=== PATIENT | female | born 1930 | race Caucasian/White ===

== ENCOUNTER 2016-06-20 15:22 | Inpatient (IN) | payer OTHER, MEDICARE ==
[2016-06-20 15:57] VITALS: BMI 14.3
[2016-06-20] MEDS ORDERED: dilTIAZem HCL 50 MG/10 ML - 10 ML VIAL IVPUSH ONE ×2 (15:57→19:37)
[2016-06-20] MEDS ORDERED: SODIUM CHLORIDE 500 ML IV ONE (15:57)
[2016-06-20] MEDS ORDERED: ASPIRIN 81 MG CHEWABLE TABLETS PO ONE (15:57)
[2016-06-20] MEDS ORDERED: ASPIRIN 81 MG CHEWABLE TABLETS ONE (16:04)
[2016-06-20] MEDS ORDERED: dilTIAZem HCL 125 MG/25 ML - 25 ML VIAL ONE (16:05)
[2016-06-20 16:08] LABS: BASOPHIL 0.7 % (0-2.0); EOSINOPHIL 0.2 % (0-4.5); MCH 30.4 pg (25.7-33.7); MCHC 31.6 g/dl (32.0-36.0); MEAN CELL VOLUME 96.2 fl (80-96); MEAN PLT VOLUME 9.4 fl (7.5-11.1); NEUTROPHILS 58.4 % (42.8-82.8); PLATELET COUNT 98 K/MM3 (134-434); RDW 16.4 % (11.6-15.6); WHITE BLOOD COUNT 2.1 K/mm3 (4.0-10.0)
[2016-06-20] MEDS ORDERED: IPRATROPIUM BR 0.02% 0.5 MG/2.5 ML VIAL.NEB. NEB ONE (16:16)
[2016-06-20] MEDS ORDERED: ALBUTEROL SO4 0.083% IH SOL 2.5 MG/3 ML VIAL.NEB. NEB ONE (16:16)
[2016-06-20] MEDS ORDERED: predniSONE 20 MG TABLET (UD) PO ONE (16:16)
--- NOTE | 2016-06-20 16:25 | PDOC ---
History of Present Illness - General History Source: Patient, Snf Records, Old Records Exam Limitations: No Limitations - History of Present Illness Initial Comments: 06/20/16 16:29 The patient is a 85 year old female brought via EMS from [facility], with a significant past medical history of Afib, CHF, Vertigo, CVA (2011), tinnitus ( left ear dx February 2016), Rheumatoid arthritis, COPD, anxiety and Pulmonary hypertension, who presents to the emergency department with chest pain, palpitations, cough and shortness of breath that began yesterday. She describes her chest pain as a pressure, ranging from mild to moderate, with radiation to the back. She denies any modifying factors. She states that her cough is productive of a "normal" sputum. She notes that she has been compliant with all her medication. The patient was admitted to [facility] after a vertigo episode and has been there ever since. The patient denies headache and dizziness. Denies fever, chills, nausea, vomit, diarrhea and constipation. Denies dysuria, frequency, urgency and hematuria. Allergies: Penicillin, aminophylline Past surgical history: Colon Surgery, left hand carpal tunnel , right eye surgery Social history: No alcohol, tobacco or drug use reported PMD - Dr. Alex Salinas Market Developer - Dr. Omar Kapoor <Colin Shore - Last Filed: 06/20/16 18:52> - General History Source: Patient, Old Records Exam Limitations: No Limitations <Horace Almonte - Last Filed: 06/20/16 20:03> - General Chief Complaint: Chest Pain Stated Complaint: DIFFICULTY BREATHING Time Seen by Provider: 06/20/16 16:06 Past History <Colin Shore - Last Filed: 06/20/16 18:52> - Past Medical History Asthma: Yes Cardiac Disorders: Yes (a-fib) CHF: Yes Diabetes: Yes (BORDER LINE) HTN: Yes Psychiatric Problems: Yes (ANXIETY) Suicide Attempt (Hx): No Thyroid Disease: Yes (hypo) - Surgical History Abdominal Surgery: No Cardiac Surgery: (YES,RT EYE) GI Surgery: Yes (COLON) Neurologic Surgery: Yes (LT CARPEL TUNNEL.) - Psycho/Social/Smoking Cessation Hx Anxiety: No Suicidal Ideation: No Smoking Status: No Smoking History: Never smoked Have you smoked in the past 12 months: No Number of Cigarettes Smoked Daily: 0 Hx Alcohol Use: No Drug/Substance Use Hx: No Substance Use Type: None Hx Substance Use Treatment: No <Horace Almonte - Last Filed: 06/20/16 20:03> - Past Medical History Allergies/Adverse Reactions: Allergies Allergy/AdvReac Type Severity Reaction Status Date / Time Penicillins Allergy Severe Difficulty Verified 06/20/16 15:57 Breathing aminophylline Allergy Mild Rash Verified 06/20/16 15:57 [From Aminophyllin] shellfsh Allergy Uncoded 06/20/16 15:57 Home Medications: Ambulatory Orders Rivaroxaban [Xarelto -] 20 mg PO DAILY 12/14/14 Levothyroxine [Synthroid -] 50 mcg PO DAILY 02/13/16 Albuterol 2.5/Ipratropium 0.5 [Duoneb -] 1 neb IH QID #120 vial.neb. MDD 4 04/10 Acetaminophen [Tylenol .Regular Strength -] 650 mg PO Q4H PRN #0 tablet Clonazepam [Klonopin -] 0.5 mg PO Q12H PRN 05/26/16 Diltiazem Cd [Cardizem Cd -] 60 mg PO DAILY #0 05/29/16 Lisinopril [Prinivil] 5 mg PO DAILY@0800 #30 tablet 05/29/16 Probenecid 500 mg PO DAILY #0 05/29/16 Meclizine HCl [Antivert -] 12.5 mg PO TID PRN 06/20/16 Saliva Substitute Combo No.9 [Biotene] 10 ml PO BID 06/20/16 Review of Systems - Review of Systems Able to Perform ROS?: Yes Comments:: 06/20/16 16:29 GENERAL/CONSTITUTIONAL: No fever or chills. No weakness. HEAD, EYES, EARS, NOSE AND THROAT: No change in vision. No ear pain or discharge. No sore throat. CARDIOVASCULAR: +Chest pain, palpitations and shortness of breath. RESPIRATORY: +Cough. No wheezing, or hemoptysis. GASTROINTESTINAL: No nausea, vomiting, diarrhea or constipation. GENITOURINARY: No dysuria, frequency, or change in urination. MUSCULOSKELETAL: No joint or muscle swelling or pain. No neck or back pain. SKIN: No rash NEUROLOGIC: No headache, vertigo, loss of consciousness, or change in strength/ sensation. ENDOCRINE: No increased thirst. No abnormal weight change HEMATOLOGIC/LYMPHATIC: No anemia, easy bleeding, or history of blood clots. ALLERGIC/IMMUNOLOGIC: No hives or skin allergy. <Colin Shore - Last Filed: 06/20/16 18:52> *Physical Exam - Vital Signs Last Vital Signs Temp Pulse Resp BP Pulse Ox 99.3 F 111 H 20 127/53 100 06/20/16 15:25 06/20/16 15:25 06/20/16 15:25 06/20/16 15:25 06/20/16 16:00 - Physical Exam Comments: 06/20/16 16:29 GENERAL: Awake, alert, and fully oriented, in no acute distress HEAD: No signs of trauma, normocephalic, atraumatic EYES: PERRLA, EOMI, sclera anicteric, conjunctiva clear ENT: Auricles normal inspection, hearing grossly normal, nares patent, oropharynx clear without exudates. Moist mucosa NECK: Normal ROM, supple, no lymphadenopathy, JVD, or masses LUNGS: +Bilateral wheezing. Speaks full sentences. HEART: +Irregularly irregular. Normal S1 and S2, no murmurs, rubs or gallops, peripheral pulses normal and equal bilaterally. ABDOMEN: Soft, nontender, normoactive bowel sounds. No guarding, no rebound. No masses EXTREMITIES: Normal inspection, Normal range of motion, no edema. No clubbing or cyanosis. NEUROLOGICAL: Cranial nerves II through XII grossly intact. Normal speech, no focal sensorimotor deficits SKIN: Warm, Dry, normal turgor, no rashes or lesions noted. <Colin Shore Olivia - Last Filed: 06/20/16 18:52> - Vital Signs Last Vital Signs Temp Pulse Resp BP Pulse Ox 99.3 F 111 H 20 127/53 100 06/20/16 15:25 06/20/16 15:25 06/20/16 15:25 06/20/16 15:25 06/20/16 15:25 <Horace Almonte - Last Filed: 06/20/16 20:03> Heart Score/ECG Review - History History: Moderately suspicious - Electrocardiogram EKG: Non specific repolarization disturbance - Age Age: >/= 65 - Risk Factors Based on the list above the patient has:: >/=3 risk factors or Hx atherosclerotic disease - Troponin Troponin: </= normal limit - Score Heart Score - Total: 6 #1 ECG reviewed & interpreted by me at: 16:00 06/20/16 16:26 afib RVR 119, left axis deviation, submm STD V6, QTC 483 msec. no JAQUELINE. <Horace Almonte - Last Filed: 06/20/16 20:03> ED Treatment Course - LABORATORY CBC & Chemistry Diagram: 06/20/16 16:00 06/20/16 16:00 - ADDITIONAL ORDERS Additional order review: 06/20/16 16:00 RBC 3.61 MCV 96.2 H MCHC 31.6 L RDW 16.4 H D MPV 9.4 D Neutrophils % 58.4 Lymphocytes % 22.2 Monocytes % 18.5 H D Eosinophils % 0.2 D Basophils % 0.7 - RADIOLOGY Radiograph Interpretation: 06/20/16 17:23 Chest X-Ray Reviewed by: Dr. Dinorah Montes Impression: Since 05/26/2016, there remains mild cardiomegaly with unfolding of the aortic arch. There is interval better aeration of both lower lobes with residual atelectatic changes versus infiltrates in the right lung base and small bilateral pleural effusion. Head CT Reviewed by: Dr. Dinorah Montes Impression: No significant interval change or acute intracranial pathology is identified. - Medications Given in the ED: ED Medications Discontinued Medications Generic Name Dose Route Start Last Admin Trade Name Freq PRN Reason Stop Dose Admin Aspirin 162 mg 06/20/16 15:57 06/20/16 16:14 Asa - PO 06/20/16 15:58 Not Given ONCE ONE Diltiazem HCl 10 mg 06/20/16 15:57 06/20/16 16:14 Cardizem Injection - IVPUSH 06/20/16 15:58 10 mg ONCE ONE Administration <Colin Shore - Last Filed: 06/20/16 18:52> - LABORATORY CBC & Chemistry Diagram: 06/20/16 16:00 06/20/16 16:00 - ADDITIONAL ORDERS Additional order review: 06/20/16 16:00 RBC 3.61 MCV 96.2 H MCHC 31.6 L RDW 16.4 H D MPV 9.4 D Neutrophils % 58.4 Lymphocytes % 22.2 Monocytes % 18.5 H D Eosinophils % 0.2 D Basophils % 0.7 - Medications Given in the ED: ED Medications Discontinued Medications Generic Name Dose Route Start Last Admin Trade Name Rachel PRN Reason Stop Dose Admin Aspirin 162 mg 06/20/16 15:57 06/20/16 16:14 Asa - PO 06/20/16 15:58 Not Given ONCE ONE Diltiazem HCl 10 mg 06/20/16 15:57 06/20/16 16:14 Cardizem Injection - IVPUSH 06/20/16 15:58 10 mg ONCE ONE Administration <Horace Almonte - Last Filed: 06/20/16 20:03> Medical Decision Making - Medical Decision Making 06/20/16 17:33 Dr. Lelo Waite was called regarding the patient at 5:33pm. Dr. Silva covering. Dr. Silva was consulted regarding the patient at 5:53pm [phone] <Colin Shore - Last Filed: 06/20/16 18:52> - Medical Decision Making 06/20/16 16:20 A portion of this scribe was written by my scribe, under my supervision. Vital Signs Temp Pulse Resp BP Pulse Ox 99.3 F 111 H 20 127/53 100 06/20/16 15:25 06/20/16 15:25 06/20/16 15:25 06/20/16 15:25 06/20/16 15:25 85 yo F c/ hx of pulm HTN, CHF, afib on xarelto, vertigo, CVA p/w afib RVR. The patient reports mildly clearish productive sputum and wheezing. She was taking an albuterol treatment at [facility] when she suddenly felt palpitations. She was noted to have chest tightness with SOB. HR was noted to be 120s in afib RVR and the patient came to the ED. Denies fevers. The pt was given IV cardizem for afib RVR which is likely induced by the albuterol. However, the patient is wheezing and will require nebulizers and steroids. Will obtain a chest xray. Though, probably less likely, will TYRON. 06/20/16 18:54 CBC, BMP 06/20/16 16:00 06/20/16 16:00 CMP Sodium 136 mmol/L (136-145) 06/20/16 16:00 Potassium 3.3 mmol/L (3.5-5.1) L 06/20/16 16:00 Chloride 97 mmol/L (98-107) L 06/20/16 16:00 Carbon Dioxide 30 mmol/L (21-32) 06/20/16 16:00 Anion Gap 9 (8-16) 06/20/16 16:00 BUN 19 mg/dL (7-18) H D 06/20/16 16:00 Creatinine 0.8 mg/dL (0.55-1.02) 06/20/16 16:00 Creat Clearance w eGFR > 60 (>60) 06/20/16 16:00 Random Glucose 196 mg/dL (74-106) H D 06/20/16 16:00 Calcium 7.9 mg/dL (8.5-10.1) L 06/20/16 16:00 Magnesium 1.8 mg/dL (1.8-2.4) 06/20/16 16:00 Total Bilirubin 0.5 mg/dL (0.2-1.0) D 06/20/16 16:00 AST 26 U/L (15-37) D 06/20/16 16:00 ALT 13 U/L (12-78) 06/20/16 16:00 Alkaline Phosphatase 59 U/L (45-117) 06/20/16 16:00 Creatine Kinase 39 IU/L (26-192) 06/20/16 16:00 Troponin I 0.05 ng/ml (0.00-0.05) 06/20/16 16:00 B-Natriuretic Peptide 91106.38 pg/ml (5-450) H 06/20/16 16:00 Total Protein 5.8 g/dl (6.4-8.2) L 06/20/16 16:00 Albumin 3.1 g/dl (3.4-5.0) L 06/20/16 16:00 UA pending. Chest xray demonstrates small b/l pleural effusions and right sided infiltrate. HCAP coverage ordered (vanc, aztreonam, azithromycin). Given elevated BNP and pleural effusions, 40 mg IV lasix ordered. Pt is also influenza positive. Tamiflu ordered given symptoms started yesterday. Pt had an episode where she was being changed where she was yelling from being changed, and she subsequently ?syncopized. Approximately several minutes later, the patient returned to baseline, where she reported feeling fine and didn't remember the event. It may have been vasovagal. Head CT was ordered and was negative. Labs also noted low plts and WBC. Dr. Silva was informed, and he accepted the patient for telemetry admission. Case discussed in detail with admitting physician including history, physical exam and ancillary studies. Admitting physician has assumed care for the patient, will follow all pending diagnostics and will complete the evaluation and treatment. 06/20/16 20:03 Pt absolutely refuses aspirin. States that he is to never take aspirin according to her hematology technologist. <Horace Almonte - Last Filed: 06/20/16 20:03> *DC/Admit/Observation/Transfer - Attestations Scribe Attestion: 06/20/16 16:28 Documentation prepared by Colin Shore, acting as clinical specialist medical device for Horace Almonte MD <Colin Shore - Last Filed: 06/20/16 18:52> - Discharge Dispostion Admit: Yes <Horace Almonte - Last Filed: 06/20/16 20:03> Diagnosis at time of Disposition: COPD exacerbation, Influenza Congestive heart failure Qualifiers: Congestive heart failure type: combined Congestive heart failure chronicity: acute Qualified Code(s): I50.41 - Acute combined systolic (congestive) and diastolic (congestive) heart failure - Referrals
[2016-06-20 16:30] LABS: INR 2.59 (0.82-1.09)
[2016-06-20 16:41] LABS: ALBUMIN 3.1 g/dl (3.4-5.0); ANION GAP 9 (8-16); BILIRUBIN,TOTAL 0.5 mg/dL (0.2-1.0); CALCIUM 7.9 mg/dL (8.5-10.1); CO2 30 mmol/L (21-32); CREATININE 0.8 mg/dL (0.55-1.02); GLUCOSE,RANDOM 196 mg/dL (74-106); MAGNESIUM 1.8 mg/dL (1.8-2.4); SGOT/AST 26 U/L (15-37); SGPT/ALT 13 U/L (12-78); TOT PROT 5.8 g/dl (6.4-8.2)
[2016-06-20 16:44] LABS: ALK PHOS 59 U/L (45-117); TROPONIN I 0.05 ng/ml (0.00-0.05)
[2016-06-20] MEDS ORDERED: predniSONE 20 MG TABLET (UD) ONE ×2 (17:13)
[2016-06-20] MEDS ORDERED: ALBUTEROL SO4 2.5/IPRATROPIUM 0.5 INH SOL 3 ML VIAL.NEB. NEB ONE (17:13)
[2016-06-20] MEDS ORDERED: POTASSIUM CHLORIDE TABS 20 MEQ TABLET.ER (FP) PO ONE ×2 (17:29→17:40)
[2016-06-20] MEDS ORDERED: AZTREONAM 2 GM in DEXTROSE 5%-WATER - 50 ML IVPB ONE (17:31)
[2016-06-20] MEDS ORDERED: VANCOMYCIN 1,000 MG in DEXTROSE 5%-WATER - 250 ML IVPB ONE (17:31)
[2016-06-20] MEDS ORDERED: AZITHROMYCIN IVPB 500 MG in DEXTROSE 5%-WATER - 250 ML IVPB ONE (17:32)
[2016-06-20] MEDS ORDERED: VANCOMYCIN 1 GRAM (PRE-DOCKED) 250 ML IVPB ONE ×2 (17:40→17:41)
[2016-06-20] MEDS ORDERED: AZITHROMYCIN IVPB 250 ML IVPB ONE (17:40)
[2016-06-20] MEDS ORDERED: FUROSEMIDE 40 MG/4 ML INJECTABLE VIAL IVPB ONE (18:08)
[2016-06-20] MEDS ORDERED: HEMOQUE TEST 1 EACH EACH ONE ×2 (18:09→19:10)
[2016-06-20] MEDS ORDERED: FUROSEMIDE 40 MG/4 ML INJECTABLE VIAL ONE (18:38)
[2016-06-20] MEDS ORDERED: OSELTAMIVIR PHOSPHATE 75 MG CAPSULE PO ONE ×2 (18:56→22:45)
[2016-06-20] MEDS ORDERED: OSELTAMIVIR PHOSPHATE 75 MG CAPSULE ONE (19:31)
[2016-06-20 20:48] LABS: PH,URINE 5.5 (5.0-8.0); URINE APPEARANCE CLEAR; URINE BILIRUBIN NEGATIVE (NEGATIVE); URINE COLOR LT. YELLOW; URINE GLUCOSE (UA) NEGATIVE (NEGATIVE); URINE KETONE NEGATIVE (NEGATIVE); URINE LEUK ESTERASE NEGATIVE (NEGATIVE); URINE NITRITE NEGATIVE (NEGATIVE); URINE UROBILINOGEN 0.2 E.U/dl E.U./dl (0.2-1.0)
[2016-06-20 20:51] LABS: URINE BLOOD 3+ (NEGATIVE); URINE PROTEIN 1+ (NEGATIVE)
[2016-06-20 21:02] LABS: URINE BACTERIA RARE /hpf (NONE SEEN); URINE HYALINE CAST 5 /lpf; URINE MUCUS RARE; URINE RBC 223 /hpf (0-3); URINE WBC 8 /hpf (3-5)
[2016-06-20] MEDS ORDERED: MECLIZINE HCL 12.5 MG TABLET PO PRN (21:44)
[2016-06-20] MEDS ORDERED: ACETAMINOPHEN 325 MG TABLET (FP) PO PRN (21:44)
[2016-06-20] MEDS ORDERED: clonazePAM 0.5 MG TABLET PO PRN (21:44)
[2016-06-20] MEDS ORDERED: OSELTAMIVIR PHOSPHATE 75 MG CAPSULE PO SCH (22:00)
[2016-06-20] MEDS: OSELTAMIVIR PHOSPHATE 30 MG CAPSULE PO SCH (23:42)
[2016-06-21] MEDS: ALBUTEROL SO4 2.5/IPRATROPIUM 0.5 INH SOL 3 ML VIAL.NEB. NEB SCH ×5 (00:03→23:11)
[2016-06-21] MEDS: methylPREDNISolone NA SUCC 40 MG/1 ML VIAL IVPB SCH ×3 (03:26→17:06)
[2016-06-21] MEDS: LEVOTHYROXINE NA 50 MCG TABLET (FP) PO SCH (06:22)
[2016-06-21 08:17] LABS: MCH 31.1 pg (25.7-33.7); MCHC 32.9 g/dl (32.0-36.0); MEAN CELL VOLUME 94.7 fl (80-96); MEAN PLT VOLUME 9.2 fl (7.5-11.1); PLATELET COUNT 82 K/MM3 (134-434)
[2016-06-21 08:35] LABS: ALBUMIN 3.1 g/dl (3.4-5.0); ALK PHOS 56 U/L (45-117); ANION GAP 9 (8-16); BILIRUBIN,TOTAL 0.6 mg/dL (0.2-1.0); CALCIUM 8.5 mg/dL (8.5-10.1); CO2 30 mmol/L (21-32); CREATININE 0.7 mg/dL (0.55-1.02); GLUCOSE,RANDOM 143 mg/dL (74-106); MAGNESIUM 1.9 mg/dL (1.8-2.4); SGOT/AST 30 U/L (15-37); SGPT/ALT 16 U/L (12-78); TOT PROT 6.2 g/dl (6.4-8.2)
[2016-06-21] MEDS ORDERED: PT OWN MED DRAWER 7, Y5N ONE ×2 (09:25→21:39)
[2016-06-21] MEDS: LISINOPRIL 5 MG TABLET (FP) PO SCH (09:35)
[2016-06-21] MEDS: RIVAROXABAN 20 MG TABLET PO SCH (09:35)
[2016-06-21] MEDS: OSELTAMIVIR PHOSPHATE 30 MG CAPSULE PO SCH ×2 (09:36→21:54)
[2016-06-21] MEDS: PROBENECID 500 MG TABLET PO SCH (09:36)
[2016-06-21] MEDS ORDERED: PANTOPRAZOLE 20 MG TABLET (FP) PO SCH (10:00)
[2016-06-21] MEDS ORDERED: dilTIAZem HCL 60 MG TABLET (FP) PO SCH (10:00)
--- NOTE | 2016-06-21 10:13 | HP ---
Admitting History and Physical - Primary Care Physician PCP: Alex Salinas - Admission Chief Complaint: sob History of Present Illness: ER HISTORY ' - History of Present Illness Initial Comments: 06/20/16 16:29 The patient is a 85 year old female brought via EMS from [facility], with a significant past medical history of Afib, CHF, Vertigo, CVA (2011), tinnitus ( left ear dx February 2016), Rheumatoid arthritis, COPD, anxiety and Pulmonary hypertension, who presents to the emergency department with chest pain, palpitations, cough and shortness of breath that began yesterday. She describes her chest pain as a pressure, ranging from mild to moderate, with radiation to the back. She denies any modifying factors. She states that her cough is productive of a "normal" sputum. She notes that she has been compliant with all her medication. The patient was admitted to [facility] alf after a vertigo episode and has been there ever since. The patient denies headache and dizziness. Denies fever, chills, nausea, vomit, diarrhea and constipation. Denies dysuria, frequency, urgency and hematuria. 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 Omar Kapoor Pt known by me from previous admissions- Examined in Telemetry [place] SOB yesterday and has some mild chest pain - she points to left nipple Coughing- productive of white sputum No diarrhea, feels chills No headaches No abd pain She had an episode of syncope in ER yesterday when she was yelling when being changed Had rapid Afib in ER and received Cardizem IV History Source: Medical Record, Transfer Record Limitations to Obtaining History: Poor Historian - Past Medical History RESOLUTE PROFESSIONAL: Yes: CVA Cardiovascular: Yes: AFIB, CAD, CHF, HTN Pulmonary: Yes: Asthma, Pneumonia ...: No Psych: Yes: Anxiety Rheumatology: Yes: Rheumatoid Arthritis - Past Surgical History Past Surgical History: Yes: Laminectomy - Smoking History Smoking history: Never smoked Have you smoked in the past 12 months: No Aproximately how many cigarettes per day: 0 - Alcohol/Substance Use Hx Alcohol Use: No - Social History ADL: Independent History of Recent Travel: No Home Medications - Allergies Allergies/Adverse Reactions: Allergies Allergy/AdvReac Type Severity Reaction Status Date / Time Penicillins Allergy Severe Difficulty Verified 06/20/16 15:57 Breathing aminophylline Allergy Mild Rash Verified 06/20/16 15:57 [From Aminophyllin] shellfsh Allergy Uncoded 06/20/16 15:57 - Home Medications Home Medications: Ambulatory Orders Rivaroxaban [Xarelto -] 20 mg PO DAILY 12/14/14 Levothyroxine [Synthroid -] 50 mcg PO DAILY 02/13/16 Albuterol 2.5/Ipratropium 0.5 [Duoneb -] 1 neb IH QID #120 vial.neb. MDD 4 04/10 Acetaminophen [Tylenol .Regular Strength -] 650 mg PO Q4H PRN #0 tablet Clonazepam [Klonopin -] 0.5 mg PO Q12H PRN 05/26/16 Diltiazem Cd [Cardizem Cd -] 60 mg PO DAILY #0 05/29/16 Lisinopril [Prinivil] 5 mg PO DAILY@0800 #30 tablet 05/29/16 Probenecid 500 mg PO DAILY #0 05/29/16 Meclizine HCl [Antivert -] 12.5 mg PO TID PRN 06/20/16 Saliva Substitute Combo No.9 [Biotene] 10 ml PO BID 06/20/16 Review of Systems - Review of Systems Constitutional: reports: Chills, Fever. denies: Loss of Appetite, Weakness Cardiovascular: reports: Chest Pain. denies: Palpitations Respiratory: reports: Cough, SOB Physical Examination Vital Signs: Vital Signs Temperature 97.9 F 06/21/16 08:14 Pulse Rate 120 H 06/21/16 08:14 Respiratory Rate 20 06/21/16 08:14 Blood Pressure 114/66 06/21/16 08:14 O2 Sat by Pulse Oximetry (%) 99 06/21/16 08:00 Constitutional: Yes: No Distress, Calm Cardiovascular: Yes: Pulse Irregular, Murmur. No: JVD Respiratory: Yes: Diminished, Rales Gastrointestinal: Yes: Normal Bowel Sounds, Soft. No: Abdomen, Obese, Distention, Tenderness Edema: No Psychiatric: Yes: Alert, Oriented Labs: CBC, BMP 06/21/16 05:35 06/21/16 05:35 Imaging - Results Chest X-ray: Image Reviewed Cat Scan: Report Reviewed EKG: Image Reviewed (Afib) Problem List - Problems (1) COPD exacerbation Code(s): J44.1 - CHRONIC OBSTRUCTIVE PULMONARY DISEASE W (ACUTE) EXACERBATION (2) Congestive heart failure Code(s): I50.9 - HEART FAILURE, UNSPECIFIED Qualifiers: Congestive heart failure type: combined Congestive heart failure chronicity: acute Qualified Code(s): I50.41 - Acute combined systolic ( congestive) and diastolic (congestive) heart failure (3) Influenza Code(s): J11.1 - FLU DUE TO UNIDENTIFIED INFLUENZA VIRUS W OTH RESP MANIFEST (4) Atrial fibrillation Code(s): I48.91 - UNSPECIFIED ATRIAL FIBRILLATION (5) Pleural effusion Code(s): J90 - PLEURAL EFFUSION, NOT ELSEWHERE CLASSIFIED (6) Chest pain Code(s): R07.9 - CHEST PAIN, UNSPECIFIED Assessment/Plan PLAN Droplet isolation for Influenza Decrease Solumedrol IV Lasix -- check renal function repeat CXR tomorrow Cardiology eval Albuterol as needed continue with meds
--- NOTE | 2016-06-21 11:17 | EKG ---
Test Reason : Blood Pressure : / mmHG Vent. Rate : 119 BPM Atrial Rate : 072 BPM P-R Int : 000 ms QRS Dur : 082 ms QT Int : 344 ms P-R-T Axes : 000 -46 198 degrees QTc Int : 483 ms ATRIAL FIBRILLATION WITH RAPID VENTRICULAR RESPONSE LEFT AXIS DEVIATION ABNORMAL ECG WHEN COMPARED WITH ECG OF 26-MAY-2016 14:46, VENT. RATE HAS INCREASED BY [address] NOW DEPRESSED IN LATERAL LEADS Confirmed by GABRIEL BYERS, FLORESITA ([id number]) on 06/21/2016 11:16:46 AM Referred By: Confirmed By:FLORESITA RIOS MD
--- NOTE | 2016-06-21 11:41 | CONSULT ---
Consult Consult Specialty:: cardiology Reason for Consultation:: shortness of breath; tachycardia; syncope - History of Present Illness History of Present Illness: The patient is a 85 year old white female (satish Vela), brought via EMS from [facility], with a significant past medical history of Afib, diastolic CHF, Vertigo, CVA (2011), tinnitus (left ear dx February 2016), Rheumatoid arthritis, COPD, chronic abdominal discomfort with loss of appetite and weight loss, anxiety, gout, who presents to the emergency department with chest pain, palpitations, cough and shortness of breath that began yesterday. She describes her chest pain as a pressure, ranging from mild to moderate, with radiation to the back. She denies any modifying factors. She states that her cough is productive of a "normal" sputum. She notes that she has been compliant with all her medication. The patient was admitted to [facility] months ago after a vertiginous episode and has been there ever since. She reports having fever and chills. - History Source History Provided By: Patient, Medical Record Limitations to Obtaining History: No Limitations - Past Medical History DIRECTOR OF HOUSING: Yes: CVA Cardio/Vascular: Yes: AFIB, CAD, CHF, HTN Pulmonary: Yes: Asthma, Pneumonia Gastrointestinal: Yes: Diverticulosis, Gastritis, GERD Reproductive: Yes: Postmenopausal ...: No Heme/Onc: Yes: Other (leukopenia) Psych: Yes: Anxiety Rheumatology: Yes: Rheumatoid Arthritis - Past Surgical History Past Surgical History: Yes: Laminectomy - Alcohol/Substance Use Hx Alcohol Use: No - Smoking History Smoking history: Never smoked Have you smoked in the past 12 months: No Aproximately how many cigarettes per day: 0 - Social History ADL: Independent History of Recent Travel: No Home Medications - Allergies Allergies/Adverse Reactions: Allergies Allergy/AdvReac Type Severity Reaction Status Date / Time Penicillins Allergy Severe Difficulty Verified 06/20/16 15:57 Breathing aminophylline Allergy Mild Rash Verified 06/20/16 15:57 [From Aminophyllin] shellfsh Allergy Uncoded 06/20/16 15:57 - Home Medications Home Medications: Ambulatory Orders Rivaroxaban [Xarelto -] 20 mg PO DAILY 12/14/14 Levothyroxine [Synthroid -] 50 mcg PO DAILY 02/13/16 Albuterol 2.5/Ipratropium 0.5 [Duoneb -] 1 neb IH QID #120 vial.neb. MDD 4 04/10 Acetaminophen [Tylenol .Regular Strength -] 650 mg PO Q4H PRN #0 tablet Clonazepam [Klonopin -] 0.5 mg PO Q12H PRN 05/26/16 Diltiazem Cd [Cardizem Cd -] 60 mg PO DAILY #0 05/29/16 Lisinopril [Prinivil] 5 mg PO DAILY@0800 #30 tablet 05/29/16 Probenecid 500 mg PO DAILY #0 05/29/16 Meclizine HCl [Antivert -] 12.5 mg PO TID PRN 06/20/16 Saliva Substitute Combo No.9 [Biotene] 10 ml PO BID 06/20/16 Family Disease History - Family Disease History Family History: Denies Review of Systems - Review of Systems Constitutional: reports: Fever, Unintentional Wgt. Loss, Weakness Eyes: reports: No Symptoms HENT: reports: No Symptoms Neck: reports: No Symptoms Cardiovascular: reports: Shortness of Breath Respiratory: reports: Cough, SOB Musculoskeletal: reports: Joint Pain, Muscle Weakness Neurological: reports: Weakness Endocrine: reports: Unexplained Weight Loss Psychiatric: reports: Anxiety - Risk Factors Known Risk Factors: Yes: Age, Hypertension, Other (atrial fibrillation) Vital Signs: Vital Signs Temperature 97.9 F 06/21/16 08:14 Pulse Rate 120 H 06/21/16 08:14 Respiratory Rate 20 06/21/16 08:14 Blood Pressure 114/66 06/21/16 08:14 O2 Sat by Pulse Oximetry (%) 99 06/21/16 08:00 Abnormal Lab Results 06/21/16 06/21/16 05:35 05:35 WBC 1.0 L D RBC 3.56 L RDW 16.0 H Plt Count 82 L Monocytes % 2.0 L D Sodium 134 L Chloride 95 L Random Glucose 143 H D Total Protein 6.2 L Albumin 3.1 L Constitutional: Yes: Anxious, Thin Eyes: Yes: WNL HENT: Yes: WNL Neck: Yes: WNL Respiratory: Yes: Diminished, Rales Gastrointestinal: Yes: Soft Renal/: No: Anuria Cardiovascular: Yes: Pulse Irregular JVD: Yes Carotid Bruit: No PMI: Non-Displaced Heart Sounds: Yes: S1 (varies in intensity), S2 Murmur: Yes: Systolic Murmur, Grade 2 Musculoskeletal: Yes: Muscle Weakness Extremities: Yes: Cool Edema: No Peripheral Pulses WNL: No Peripheral Pulses: 1+ Left Doralis Pedis, 1+ Right Dorsalis Pedis Neurological: Yes: Alert, Oriented, Weakness Psychiatric: Yes: Alert, Oriented - Other Data Labs, Other Data: CBC, BMP 06/21/16 05:35 06/21/16 05:35 INR, PTT INR 2.59 (0.82-1.09) H 06/20/16 16:00 Abnormal Lab Results 06/21/16 06/21/16 05:35 05:35 WBC 1.0 L D RBC 3.56 L RDW 16.0 H Plt Count 82 L Monocytes % 2.0 L D Sodium 134 L Chloride 95 L Random Glucose 143 H D Total Protein 6.2 L Albumin 3.1 L Echo: Image Reviewed (normal LVEF; mildly reduced RVEF; moderate MR.) Ejection Fraction %: LVEF > or = 40 % Imaging - Results Chest X-ray: Image Reviewed (small bilateral pleural effusions;) EKG: Image Reviewed (AF) Problem List - Problems (1) COPD exacerbation Assessment/Plan: on Solumedrol, bronchodilators. Code(s): J44.1 - CHRONIC OBSTRUCTIVE PULMONARY DISEASE W (ACUTE) EXACERBATION (2) Influenza Assessment/Plan: on Tamiflu; f/u with ID. Code(s): J11.1 - FLU DUE TO UNIDENTIFIED INFLUENZA VIRUS W OTH RESP MANIFEST (3) Anxiety Code(s): F41.9 - ANXIETY DISORDER, UNSPECIFIED (4) Atrial fibrillation Assessment/Plan: On diltiazem (restart 120 mg CD/day). On Xarelto. Code(s): I48.91 - UNSPECIFIED ATRIAL FIBRILLATION (5) Diastolic dysfunction with chronic heart failure Code(s): I50.32 - CHRONIC DIASTOLIC (CONGESTIVE) HEART FAILURE (6) Dizziness Assessment/Plan: on Antivert. Code(s): R42 - DIZZINESS AND GIDDINESS (7) Fever Code(s): R50.9 - FEVER, UNSPECIFIED (8) Abdominal discomfort Code(s): R10.9 - UNSPECIFIED ABDOMINAL PAIN (9) Leukopenia Assessment/Plan: Marked leukopenia with thrombocytopenia: ? medications (including agent for gout ; ? due to clonazepam); sepsis with immunosupression; r/o malignancy.. Code(s): D72.819 - DECREASED WHITE BLOOD CELL COUNT, UNSPECIFIED (10) Thrombocytopenia Code(s): D69.6 - THROMBOCYTOPENIA, UNSPECIFIED (11) Hypothyroid Assessment/Plan: On Synthroid. TSH 2.35. Code(s): E03.9 - HYPOTHYROIDISM, UNSPECIFIED
[2016-06-21] MEDS ORDERED: FUROSEMIDE 40 MG/4 ML INJECTABLE VIAL IVPUSH SCH (14:00)
[2016-06-22] MEDS: methylPREDNISolone NA SUCC 40 MG/1 ML VIAL IVPB SCH ×3 (02:30→22:08)
[2016-06-22] MEDS: LEVOTHYROXINE NA 50 MCG TABLET (FP) PO SCH (06:10)
[2016-06-22] MEDS: ALBUTEROL SO4 2.5/IPRATROPIUM 0.5 INH SOL 3 ML VIAL.NEB. NEB SCH ×4 (06:23→23:15)
[2016-06-22 07:03] LABS: MCH 31.2 pg (25.7-33.7); MCHC 32.7 g/dl (32.0-36.0); MEAN CELL VOLUME 95.3 fl (80-96); MEAN PLT VOLUME 9.2 fl (7.5-11.1); NEUTROPHILS 81.7 % (42.8-82.8); PLATELET COUNT 86 K/MM3 (134-434); RDW 16.3 % (11.6-15.6); WHITE BLOOD COUNT 2.9 K/mm3 (4.0-10.0)
[2016-06-22 07:55] LABS: ALBUMIN 3.3 g/dl (3.4-5.0); ALK PHOS 59 U/L (45-117); ANION GAP 9 (8-16); BILIRUBIN,TOTAL 0.6 mg/dL (0.2-1.0); CALCIUM 8.9 mg/dL (8.5-10.1); CO2 31 mmol/L (21-32); CREATININE 0.8 mg/dL (0.55-1.02); GLUCOSE,RANDOM 140 mg/dL (74-106); SGOT/AST 24 U/L (15-37); SGPT/ALT 16 U/L (12-78); TOT PROT 6.6 g/dl (6.4-8.2)
[2016-06-22] MEDS ORDERED: PT OWN MED DRAWER 7, Y5N ONE (08:14)
[2016-06-22] MEDS: LISINOPRIL 5 MG TABLET (FP) PO SCH (08:31)
[2016-06-22] MEDS: RANITIDINE HCL 150 MG TABLET (FP) PO SCH (10:02)
[2016-06-22] MEDS: RIVAROXABAN 20 MG TABLET PO SCH (10:02)
[2016-06-22] MEDS: PROBENECID 500 MG TABLET PO SCH (10:03)
[2016-06-22] MEDS: FUROSEMIDE 40 MG/4 ML INJECTABLE VIAL IVPUSH SCH (10:03)
--- NOTE | 2016-06-22 10:55 | PN ---
Progress Note (short form) - Note Progress Note: SUBJECTIVE: Patient seen and examined. Chart reviewed. Patient comfortable. Cough present. Overall feels better. Afebrile. OBJECTIVE: Vital Signs - 8 hr 06/22/16 06/22/16 06/22/16 06:55 07:40 07:44 Temperature 98.1 F Pulse Rate 97 H 103 H Respiratory 20 20 20 Rate Blood Pressure 123/64 120/69 Intake & Output 06/21/16 06/22/16 06/22/16 23:59 07:59 15:59 Intake Total 300 Output Total 400 Balance -100 Weight 41.095 kg Intake: Oral 300 Output: Urine 400 Pérez 400 Other: Voiding Method Indwelling Catheter Incontinent # Unmeasured Voids Pérez 1 Bowel Movement Yes Weight Measurement Method Standing Scale Active Medications Acetaminophen (Tylenol -) 650 mg PO Q4H PRN PRN Reason: FEVER OR PAIN Albuterol/Ipratropium (Duoneb -) 1 amp NEB QIDR [facility] Last Admin: 06/22/16 06:23 Dose: 1 amp Clonazepam (Klonopin -) 0.5 mg PO Q12H PRN PRN Reason: ANXIETY Diltiazem HCl (Cardizem Cd -) 120 mg PO DAILY [facility] Last Admin: 06/22/16 10:02 Dose: 120 mg Furosemide (Lasix Injection -) 20 mg IVPUSH DAILY [facility] Last Admin: 06/22/16 10:03 Dose: 20 mg Levothyroxine Sodium (Synthroid -) 50 mcg PO DAILY@0700 [facility] Last Admin: 06/22/16 06:10 Dose: 50 mcg Lisinopril (Prinivil) 5 mg PO DAILY@0800 [facility] Last Admin: 06/22/16 08:31 Dose: 5 mg Meclizine HCl (Antivert -) 12.5 mg PO TID PRN PRN Reason: dizziness Methylprednisolone Sodium Succinate (Solu-Medrol -) 40 mg IVPB Q8H-IV [facility] Last Admin: 06/22/16 10:02 Dose: 40 mg Oseltamivir Phosphate (Tamiflu -) 30 mg PO BID [facility] Last Admin: 06/21/16 21:54 Dose: 30 mg Probenecid (Benemid -) 500 mg PO DAILY [facility] Last Admin: 06/22/16 10:03 Dose: 500 mg Ranitidine HCl (Zantac -) 150 mg PO DAILY [facility] Last Admin: 06/22/16 10:02 Dose: 150 mg Rivaroxaban (Xarelto -) 20 mg PO DAILY [facility] Last Admin: 06/22/16 10:02 Dose: 20 mg CBC, BMP 06/22/16 05:35 06/22/16 05:35 Laboratory Results - last 24 hr 06/22/16 06/22/16 05:35 05:35 WBC 2.9 L D RBC 3.65 Hgb 11.4 Hct 34.8 MCV 95.3 MCHC 32.7 RDW 16.3 H Plt Count 86 L MPV 9.2 Neutrophils % 81.7 Lymphocytes % 11.5 D Monocytes % 6.8 D Eosinophils % 0.0 D Basophils % 0.0 Sodium 136 Potassium 4.0 Chloride 96 L Carbon Dioxide 31 Anion Gap 9 BUN 22 H D Creatinine 0.8 Creat Clearance w eGFR > 60 Random Glucose 140 H Calcium 8.9 Total Bilirubin 0.6 AST 24 ALT 16 Alkaline Phosphatase 59 Total Protein 6.6 Albumin 3.3 L Microbiology 06/20/16 20:02 Urine Culture - Final Urine - Urine Clean Catch NO GROWTH OBTAINED 06/20/16 19:11 Blood Culture - Preliminary Blood - Peripheral Venous NO GROWTH OBTAINED AFTER 24 HOURS, INCUBATION TO CONTINUE FOR 4 DAYS. 06/20/16 19:11 Blood Culture - Preliminary Blood - Peripheral Venous NO GROWTH OBTAINED AFTER 24 HOURS, INCUBATION TO CONTINUE FOR 4 DAYS. PHYSICAL EXAMINATION: Constitutional: Yes: No Distress, Calm Cardiovascular: Yes: Pulse Irregular, Murmur. No: JVD Respiratory: Yes: Diminished. Rhonchi. Gastrointestinal: Yes: Normal Bowel Sounds, Soft. No: Abdomen, Obese, Distention, Tenderness Edema: No Psychiatric: Yes: Alert, Oriented ASSESSMENT & PLAN: - Overall better. - Droplet isolation for Influenza. - Decrease Solumedrol slowly. - Medications reviewed. - Repeat Chest X-Ray today. - Cardiology evaluation noted. - Albuterol as needed - Patient is also neutropenic and thrombocytopenic. - Will consult Hematology- Discussed with Dr. Moctezuma- He will see the patient later today. - Will follow. Problem List - Problems (1) COPD exacerbation Code(s): J44.1 - CHRONIC OBSTRUCTIVE PULMONARY DISEASE W (ACUTE) EXACERBATION (2) Congestive heart failure Code(s): I50.9 - HEART FAILURE, UNSPECIFIED Qualifiers: Congestive heart failure type: combined Congestive heart failure chronicity: acute Qualified Code(s): I50.41 - Acute combined systolic ( congestive) and diastolic (congestive) heart failure (3) Influenza Code(s): J11.1 - FLU DUE TO UNIDENTIFIED INFLUENZA VIRUS W OTH RESP MANIFEST (4) Atrial fibrillation Code(s): I48.91 - UNSPECIFIED ATRIAL FIBRILLATION (5) Pleural effusion Code(s): J90 - PLEURAL EFFUSION, NOT ELSEWHERE CLASSIFIED (6) Chest pain Code(s): R07.9 - CHEST PAIN, UNSPECIFIED Documentation prepared by Mallorie Lopez, acting as a medical housekeeper for Jefferson Silva MD.
[2016-06-22] MEDS: OSELTAMIVIR PHOSPHATE 30 MG CAPSULE PO SCH ×2 (11:02→22:08)
--- NOTE | 2016-06-22 15:30 | PN ---
Progress Note, Physician Chief Complaint: Pt sitting in chair; asymptomatic, and feels much better. Some improvement in appetite. History of Present Illness: The patient is a 85 year old white female (satish Vela), brought via EMS from [facility], with a significant past medical history of Afib, diastolic CHF, Vertigo, CVA (2011), tinnitus (left ear dx February 2016), Rheumatoid arthritis, COPD, chronic abdominal discomfort with loss of appetite and weight loss, anxiety, gout, who presents to the emergency department with chest pain, palpitations, cough and shortness of breath that began yesterday. She describes her chest pain as a pressure, ranging from mild to moderate, with radiation to the back. She denies any modifying factors. She states that her cough is productive of a "normal" sputum. She notes that she has been compliant with all her medication. The patient was admitted to [facility] months ago after a vertiginous episode and has been there ever since. She reports having fever and chills. - Current Medication List Current Medications: Active Medications Acetaminophen (Tylenol -) 650 mg PO Q4H PRN PRN Reason: FEVER OR PAIN Albuterol/Ipratropium (Duoneb -) 1 amp NEB QIDR [facility] Last Admin: 06/22/16 11:05 Dose: 1 amp Clonazepam (Klonopin -) 0.5 mg PO Q12H PRN PRN Reason: ANXIETY Diltiazem HCl (Cardizem Cd -) 120 mg PO DAILY [facility] Last Admin: 06/22/16 10:02 Dose: 120 mg Furosemide (Lasix Injection -) 20 mg IVPUSH DAILY [facility] Last Admin: 06/22/16 10:03 Dose: 20 mg Levothyroxine Sodium (Synthroid -) 50 mcg PO DAILY@0700 [facility] Last Admin: 06/22/16 06:10 Dose: 50 mcg Lisinopril (Prinivil) 5 mg PO DAILY@0800 [facility] Last Admin: 06/22/16 08:31 Dose: 5 mg Meclizine HCl (Antivert -) 12.5 mg PO TID PRN PRN Reason: dizziness Methylprednisolone Sodium Succinate (Solu-Medrol -) 40 mg IVPB BID [facility] Oseltamivir Phosphate (Tamiflu -) 30 mg PO BID [facility] Last Admin: 06/22/16 11:02 Dose: 30 mg Probenecid (Benemid -) 500 mg PO DAILY [facility] Last Admin: 06/22/16 10:03 Dose: 500 mg Ranitidine HCl (Zantac -) 150 mg PO DAILY [facility] Last Admin: 06/22/16 10:02 Dose: 150 mg Rivaroxaban (Xarelto -) 20 mg PO DAILY [facility] Last Admin: 06/22/16 10:02 Dose: 20 mg - Objective Vital Signs: Vital Signs Temperature 98.2 F 06/22/16 14:15 Pulse Rate 101 H 06/22/16 14:15 Respiratory Rate 20 06/22/16 14:15 Blood Pressure 134/65 06/22/16 14:15 O2 Sat by Pulse Oximetry (%) 95 06/22/16 10:50 Constitutional: Yes: Calm Eyes: Yes: WNL HENT: Yes: WNL Neck: Yes: WNL Cardiovascular: Yes: Pulse Irregular Respiratory: Yes: Diminished Gastrointestinal: Yes: Soft ...Rectal Exam: Yes: Deferred Genitourinary: No: Anuria Breast(s): Yes: WNL Musculoskeletal: Yes: Muscle Weakness Extremities: Yes: Cool Edema: No Peripheral Pulses WNL: No Peripheral Pulses: Left Doralis Pedis: 1+, Right Dorsalis Pedis: 1+ Integumentary: Yes: WNL Neurological: Yes: Alert, Oriented, Weakness Psychiatric: Yes: Alert, Oriented Labs: CBC, BMP 06/22/16 05:35 06/22/16 05:35 INR, PTT INR 2.59 (0.82-1.09) H 06/20/16 16:00 Abnormal Lab Results 06/22/16 06/22/16 05:35 05:35 WBC 2.9 L D RDW 16.3 H Plt Count 86 L Chloride 96 L BUN 22 H D Random Glucose 140 H Albumin 3.3 L - ....Imaging Chest X-ray: Image Reviewed (small bibasal pleural effusions) Problem List - Problems (1) COPD exacerbation Assessment/Plan: on Solumedrol, bronchodilators. (2) Influenza Assessment/Plan: on Tamiflu; f/u with ID. Code(s): J11.1 - FLU DUE TO UNIDENTIFIED INFLUENZA VIRUS W OTH RESP MANIFEST (3) Anxiety Code(s): F41.9 - ANXIETY DISORDER, UNSPECIFIED (4) Atrial fibrillation Assessment/Plan: On diltiazem (rising HR last night; restarted 120 mg CD/day). On Xarelto. Code(s): I48.91 - UNSPECIFIED ATRIAL FIBRILLATION (5) Diastolic dysfunction with chronic heart failure Code(s): I50.32 - CHRONIC DIASTOLIC (CONGESTIVE) HEART FAILURE (6) Dizziness Assessment/Plan: on Antivert. Code(s): R42 - DIZZINESS AND GIDDINESS (7) Fever Code(s): R50.9 - FEVER, UNSPECIFIED (8) Abdominal discomfort Code(s): R10.9 - UNSPECIFIED ABDOMINAL PAIN (9) Leukopenia Assessment/Plan: Marked leukopenia with thrombocytopenia: ? medications (including agent for gout ; ? due to clonazepam); sepsis with immunosupression; r/o malignancy.. Code(s): D72.819 - DECREASED WHITE BLOOD CELL COUNT, UNSPECIFIED (10) Thrombocytopenia Code(s): D69.6 - THROMBOCYTOPENIA, UNSPECIFIED (11) Hypothyroid Assessment/Plan: On Synthroid. TSH 2.35. Code(s): E03.9 - HYPOTHYROIDISM, UNSPECIFIED
--- NOTE | 2016-06-22 21:48 | PN ---
Progress Note (short form) - Note Progress Note: CONSULT dictated 85 year old from [facility] present with palpitation, chest pain, cough. Noted to have pancytopenia. Of note from 05/26 through 05/31/16 there were 3 CBC's obtained. THese were al normal with nl Hct, WBC, diff, and platelet. 19 days later , pancytopenia. Normal CBC in 05/25 suggests patient does not have an underlying primary hematologic disorder, but rather an acute event is etiologic. Upon discharge from hospital 05/31/16 patient was on the current meds and in addition, levaquin, colchicine, and hctz. While it is possible one of the meds is the culpable agent, an occult infection is also possible. Currently patient with pulmonary symptomatology with abnormal C-Xray and wheezes , rhonchi on exam and non productive cough. Will do screening tests and would treat for occult pulmonary infection after culturing up. Note that patient described an episode of blood per rectum today and is on xarelto. Will need to assess as well.
[2016-06-23] MEDS: LEVOTHYROXINE NA 50 MCG TABLET (FP) PO SCH (06:10)
[2016-06-23] MEDS: ALBUTEROL SO4 2.5/IPRATROPIUM 0.5 INH SOL 3 ML VIAL.NEB. NEB SCH ×4 (06:30→23:13)
--- NOTE | 2016-06-23 06:48 | CONS ---
DATE OF CONSULTATION: 06/22/2016 REQUESTING PHYSICIAN: Jefferson Silva MD HISTORY: This 85-year-old female was brought in with chest pain, cough, shortness of breath. The patient was born in [place] and is a nonsmoker and nondrinker with no industrial exposures. PAST MEDICAL HISTORY: Includes that of rheumatoid arthritis, COPD, history of CVA, history of pneumonia, history of vertigo, history of diastolic CHF, history of atrial fibrillation. Past GI history includes that of GERD, gastritis, and diverticular disease. PAST SURGICAL HISTORY: Includes laminectomy. ALLERGIES: Include PENICILLIN with difficulty breathing, AMINOPHYLLINE with rash, and SHELLFISH. REVIEW OF MEDICINES: Reveal patient on Xarelto, Synthroid 50, albuterol, Tylenol, Klonopin 0.5, diltiazem 60, Prinivil 5, probenecid 500, meclizine 12.5 t.i.d. p.r.n., and saliva substitutes. REVIEW OF SYSTEMS: No headaches, diplopia, epistaxis. No dysphagia. Poor appetite. No nausea or vomiting. The patient describes an episode of blood per rectum. States she has a history of hemorrhoids. The patient has had cough, has had periods of rapid heartbeat. PHYSICAL EXAMINATION: Vital Signs: BP 116/54, pulse 88. Heart: Rhythm seems irregular. Breasts: No dominant masses. Abdomen: Soft. No organomegaly. Lungs: Diffuse rhonchi, wheezes. Extremities: No significant edema. Negative. HEENT: Significant arcus. Tongue is decreased papillation. Lymph nodes: No cervical or supraclavicular nodes. LABORATORY: WBC on admission 2.1, currently 2.9, hematocrit 34.8, MCV 95, platelets 98, 82, and 86,000, 81 polys, 11 lymphocytes, 6 monocytes, initially 18 monocytes. Chest x-ray: Cardiomegaly, unfolding of the aorta, residual atelectatic changes versus infiltrates in the right lung base, and small bilateral pleural effusions. IMPRESSION: Pancytopenia, which has developed May 31, 2016 when the patient was in the hospital. During that admission from May 26 to May 31, the patient had normal hematocrit, normal WBC, normal differential, and normal platelets. This does suggest an acute process. Either a new medicine prescribed or perhaps a recent occult infection. In review of discharge medicines, the only medicines upon discharge, which were administered, which are currently not included in the current order, include colchicine 0.5, hydrochlorothiazide, short course of Levaquin. All the others were essentially unchanged. Suspect occult infection as possible source. In view of the fact that CBC was relatively normal from May 26 through May 31 on 3 separate occasions, doubt underlying hematologic disorder. Currently the patient has been begun on Tamiflu. We will do screening tests. As the discharge medicines are essentially the same except for the aforementioned medicines, would maintain current medicines as these are also potentially culpable. Would monitor for now. LALITHA FOUNTAIN M.D. [id number] MTDD
[2016-06-23 08:16] LABS: BASOPHIL 0.1 % (0-2.0); MCH 31.2 pg (25.7-33.7); MCHC 33.1 g/dl (32.0-36.0); MEAN CELL VOLUME 94.2 fl (80-96); MEAN PLT VOLUME 9.7 fl (7.5-11.1); PLATELET COUNT 110 K/MM3 (134-434); WHITE BLOOD COUNT 6.2 K/mm3 (4.0-10.0)
[2016-06-23] MEDS ORDERED: PT OWN MED DRAWER 7, Y5N ONE (09:47)
[2016-06-23] MEDS: FUROSEMIDE 40 MG/4 ML INJECTABLE VIAL IVPUSH SCH (10:52)
[2016-06-23] MEDS: methylPREDNISolone NA SUCC 40 MG/1 ML VIAL IVPB SCH ×2 (10:52→21:54)
[2016-06-23] MEDS: RIVAROXABAN 20 MG TABLET PO SCH (10:53)
[2016-06-23] MEDS: RANITIDINE HCL 150 MG TABLET (FP) PO SCH (10:53)
[2016-06-23] MEDS: OSELTAMIVIR PHOSPHATE 30 MG CAPSULE PO SCH ×2 (10:53→21:54)
[2016-06-23] MEDS: LISINOPRIL 5 MG TABLET (FP) PO SCH (10:53)
[2016-06-23] MEDS: PROBENECID 500 MG TABLET PO SCH (10:54)
--- NOTE | 2016-06-23 12:14 | PN ---
Progress Note (short form) - Note Progress Note: Patient seen in follow up today. Without new complaints. No significant events overnight. Meds reviewed. Current Medications Generic Name Dose Route Start Last Admin Trade Name Freq PRN Reason Stop Dose Admin Acetaminophen 650 mg 06/20/16 21:44 Tylenol - PO Q4H PRN FEVER OR PAIN Albuterol/Ipratropium 1 amp 06/21/16 00:00 06/23/16 11:41 Duoneb - NEB 1 amp QIDR [facility] Administration Clonazepam 0.5 mg 06/20/16 21:44 Klonopin - PO Q12H PRN ANXIETY Diltiazem HCl 120 mg 06/21/16 23:45 06/23/16 10:53 Cardizem Cd - PO 120 mg DAILY [facility] Administration Furosemide 20 mg 06/22/16 10:00 06/23/16 10:52 Lasix Injection - IVPUSH 20 mg DAILY [facility] Administration Levothyroxine Sodium 50 mcg 06/21/16 07:00 06/23/16 06:10 Synthroid - PO 50 mcg DAILY@0700 [facility] Administration Lisinopril 5 mg 06/21/16 08:00 06/23/16 10:53 Prinivil PO 5 mg DAILY@0800 [facility] Administration Meclizine HCl 12.5 mg 06/20/16 21:44 Antivert - PO TID PRN dizziness Methylprednisolone Sodium Succinate 40 mg 06/22/16 22:00 06/23/16 10:52 Solu-Medrol - IVPB 40 mg BID [facility] Administration Oseltamivir Phosphate 30 mg 06/20/16 22:45 06/23/16 10:53 Tamiflu - PO 30 mg BID [facility] Administration Probenecid 500 mg 06/21/16 10:00 06/23/16 10:54 Benemid - PO 500 mg DAILY [facility] Administration Ranitidine HCl 150 mg 06/22/16 10:00 06/23/16 10:53 Zantac - PO 150 mg DAILY [facility] Administration Rivaroxaban 20 mg 06/21/16 10:00 06/23/16 10:53 Xarelto - PO 20 mg DAILY [facility] Administration On examination: Last Vital Signs Temp Pulse Resp BP Pulse Ox 97.8 F 104 H 18 142/69 96 06/23/16 06:00 06/23/16 10:00 06/23/16 10:00 06/23/16 10:00 06/22/16 21:00 Cachectic. Tachypneic, with mild resp distress while on nasal canulae. Well-hydrated, no pallor or icterus. Chest: scattered crackles/wheezes. Abdomen: Soft, non-tender. CVS: S1, S2, irregular. Neuro: Alert and oriented, non-focal. CBC, BMP 06/23/16 05:35 06/23/16 05:35 Assesment: Patient presenting with respiratory symptoms, suggestive of COPD exacerbation, possible viral infection, with concomitantly noted new thrombocytopenia and leukopenia. Low index of suspicion for a primary hematological process, possible reactive ( infection) vs recent drug exposure. Today counts significantly improved. Will continue to observe.
--- NOTE | 2016-06-23 12:20 | PN ---
Progress Note (short form) - Note Progress Note: SUBJECTIVE: Patient seen and examined. Chart reviewed. Patient confused today no distress Afebrile. OBJECTIVE: Vital Signs Period Temp Pulse Resp BP Sys/Brown Pulse Ox Last 24 Hr 97.3 F-98.2 F 86-106 18-20 116-142/51-69 96 Active Medications Acetaminophen (Tylenol -) 650 mg PO Q4H PRN PRN Reason: FEVER OR PAIN Albuterol/Ipratropium (Duoneb -) 1 amp NEB QIDR [facility] Last Admin: 06/22/16 06:23 Dose: 1 amp Clonazepam (Klonopin -) 0.5 mg PO Q12H PRN PRN Reason: ANXIETY Diltiazem HCl (Cardizem Cd -) 120 mg PO DAILY [facility] Last Admin: 06/22/16 10:02 Dose: 120 mg Furosemide (Lasix Injection -) 20 mg IVPUSH DAILY [facility] Last Admin: 06/22/16 10:03 Dose: 20 mg Levothyroxine Sodium (Synthroid -) 50 mcg PO DAILY@0700 [facility] Last Admin: 06/22/16 06:10 Dose: 50 mcg Lisinopril (Prinivil) 5 mg PO DAILY@0800 [facility] Last Admin: 06/22/16 08:31 Dose: 5 mg Meclizine HCl (Antivert -) 12.5 mg PO TID PRN PRN Reason: dizziness Methylprednisolone Sodium Succinate (Solu-Medrol -) 40 mg IVPB Q8H-IV [facility] Last Admin: 06/22/16 10:02 Dose: 40 mg Oseltamivir Phosphate (Tamiflu -) 30 mg PO BID [facility] Last Admin: 06/21/16 21:54 Dose: 30 mg Probenecid (Benemid -) 500 mg PO DAILY [facility] Last Admin: 06/22/16 10:03 Dose: 500 mg Ranitidine HCl (Zantac -) 150 mg PO DAILY [facility] Last Admin: 06/22/16 10:02 Dose: 150 mg Rivaroxaban (Xarelto -) 20 mg PO DAILY [facility] Last Admin: 06/22/16 10:02 Dose: 20 mg CBC, BMP 06/23/16 05:35 06/23/16 05:35 PHYSICAL EXAMINATION: Constitutional: Yes: No Distress, Calm Cardiovascular: Yes: Pulse Irregular, Murmur. No: JVD Respiratory: Yes: Diminished. no wheezes. few scattered rhonchi. Gastrointestinal: Yes: Normal Bowel Sounds, Soft. No: Abdomen, Obese, Distention, Tenderness Edema: No Psychiatric: Yes: Alert, somewhat confused ASSESSMENT & PLAN: - Overall stable - Droplet isolation for Influenza. - Decrease Solumedrol - Medications reviewed. - hematology consult noted / appreciated - cbc better -continue present care Problem List - Problems (1) COPD exacerbation Code(s): J44.1 - CHRONIC OBSTRUCTIVE PULMONARY DISEASE W (ACUTE) EXACERBATION (2) Congestive heart failure Code(s): I50.9 - HEART FAILURE, UNSPECIFIED Qualifiers: Congestive heart failure type: combined Congestive heart failure chronicity: acute Qualified Code(s): I50.41 - Acute combined systolic ( congestive) and diastolic (congestive) heart failure (3) Influenza Code(s): J11.1 - FLU DUE TO UNIDENTIFIED INFLUENZA VIRUS W OTH RESP MANIFEST (4) Atrial fibrillation Code(s): I48.91 - UNSPECIFIED ATRIAL FIBRILLATION (5) Pleural effusion Code(s): J90 - PLEURAL EFFUSION, NOT ELSEWHERE CLASSIFIED (6) Chest pain Code(s): R07.9 - CHEST PAIN, UNSPECIFIED
[2016-06-23 13:01] LABS: ALBUMIN 3.6 g/dl (3.4-5.0); BILIRUBIN,TOTAL 0.7 mg/dL (0.2-1.0); CALCIUM 9.3 mg/dL (8.5-10.1); CREATININE 0.9 mg/dL (0.55-1.02); TOT PROT 7.4 g/dl (6.4-8.2)
--- NOTE | 2016-06-23 13:05 | PN ---
Progress Note, Physician Chief Complaint: Pt sitting up; thnks her son was outside the room. Knows she is in [facility], knows date and room number. History of Present Illness: The patient is a 85 year old female (satish Vela), brought via EMS from [facility], with a significant past medical history of Afib, diastolic CHF (with mildly reduced RVEF), Vertigo, CVA (2011), tinnitus (left ear dx February 2016), Rheumatoid arthritis, COPD, anxiety, and Pulmonary hypertension, who presents to the emergency department with chest pain, palpitations, cough and shortness of breath that began yesterday. She describes her chest pain as a pressure, ranging from mild to moderate, with radiation to the back. She denies any modifying factors. She states that her cough is productive of a "normal" sputum. She notes that she has been compliant with all her medication. The patient was admitted to [facility] after a vertigo episode and has been there ever since. The patient denies headache and dizziness. Denies fever, chills, nausea, vomit, diarrhea and constipation. Denies dysuria, frequency, urgency and hematuria. Allergies: Penicillin, aminophylline Past surgical history: Colon Surgery, left hand carpal tunnel , right eye surgery Social history: No alcohol, tobacco or drug use reported PMD - Dr. Alex Salinas Supply Chain Development Manager - Dr. Omar Kapoor - Current Medication List Current Medications: Active Medications Acetaminophen (Tylenol -) 650 mg PO Q4H PRN PRN Reason: FEVER OR PAIN Albuterol/Ipratropium (Duoneb -) 1 amp NEB QIDR [facility] Last Admin: 06/23/16 11:41 Dose: 1 amp Clonazepam (Klonopin -) 0.5 mg PO Q12H PRN PRN Reason: ANXIETY Diltiazem HCl (Cardizem Cd -) 120 mg PO DAILY [facility] Last Admin: 06/23/16 10:53 Dose: 120 mg Furosemide (Lasix Injection -) 20 mg IVPUSH DAILY [facility] Last Admin: 06/23/16 10:52 Dose: 20 mg Levothyroxine Sodium (Synthroid -) 50 mcg PO DAILY@0700 [facility] Last Admin: 06/23/16 06:10 Dose: 50 mcg Lisinopril (Prinivil) 5 mg PO DAILY@0800 [facility] Last Admin: 06/23/16 10:53 Dose: 5 mg Meclizine HCl (Antivert -) 12.5 mg PO TID PRN PRN Reason: dizziness Methylprednisolone Sodium Succinate (Solu-Medrol -) 20 mg IVPB BID [facility] Oseltamivir Phosphate (Tamiflu -) 30 mg PO BID [facility] Last Admin: 06/23/16 10:53 Dose: 30 mg Probenecid (Benemid -) 500 mg PO DAILY [facility] Last Admin: 06/23/16 10:54 Dose: 500 mg Ranitidine HCl (Zantac -) 150 mg PO DAILY [facility] Last Admin: 06/23/16 10:53 Dose: 150 mg Rivaroxaban (Xarelto -) 20 mg PO DAILY [facility] Last Admin: 06/23/16 10:53 Dose: 20 mg - Objective Vital Signs: Vital Signs Temperature 97.8 F 06/23/16 06:00 Pulse Rate 104 H 06/23/16 10:00 Respiratory Rate 18 06/23/16 10:00 Blood Pressure 142/69 06/23/16 10:00 O2 Sat by Pulse Oximetry (%) 96 06/22/16 21:00 Constitutional: Yes: Anxious Eyes: Yes: WNL HENT: Yes: WNL Neck: Yes: WNL Cardiovascular: Yes: Tachycardia, Pulse Irregular Respiratory: Yes: Diminished Gastrointestinal: Yes: Soft ...Rectal Exam: Yes: Deferred Genitourinary: No: Anuria Breast(s): Yes: WNL Musculoskeletal: Yes: Muscle Weakness Extremities: Yes: Cool Edema: No Peripheral Pulses WNL: No Peripheral Pulses: Left Doralis Pedis: 1+, Right Dorsalis Pedis: 1+ Integumentary: Yes: WNL Neurological: Yes: Alert, Confusion, Weakness Psychiatric: Yes: Other (anxeity/depression) Labs: CBC, BMP 06/23/16 05:35 06/23/16 05:35 INR, PTT INR 2.59 (0.82-1.09) H 06/20/16 16:00 - ....Imaging Other: Image Reviewed (telemetry: AF; periods of RVR) Problem List - Problems (1) COPD exacerbation Assessment/Plan: on Solumedrol, bronchodilators. (2) Influenza Assessment/Plan: on Tamiflu; f/u with ID. Code(s): J11.1 - FLU DUE TO UNIDENTIFIED INFLUENZA VIRUS W OTH RESP MANIFEST (3) Anxiety Code(s): F41.9 - ANXIETY DISORDER, UNSPECIFIED (4) Atrial fibrillation Assessment/Plan: On diltiazem ( restarted 120 mg CD/day). On Xarelto. Code(s): I48.91 - UNSPECIFIED ATRIAL FIBRILLATION (5) Diastolic dysfunction with chronic heart failure Code(s): I50.32 - CHRONIC DIASTOLIC (CONGESTIVE) HEART FAILURE (6) Dizziness Assessment/Plan: on Antivert. Cautious diuresis for CHF; avoid excessive dehydration. F/u orthostatic vital signs. Code(s): R42 - DIZZINESS AND GIDDINESS (7) Fever Code(s): R50.9 - FEVER, UNSPECIFIED (8) Abdominal discomfort Code(s): R10.9 - UNSPECIFIED ABDOMINAL PAIN (9) Leukopenia Assessment/Plan: Marked leukopenia, initially worsening within 48 hrs of admission (normal a month ago); now again WNL, while undergoing treatment for sepsis, influenza. Code(s): D72.819 - DECREASED WHITE BLOOD CELL COUNT, UNSPECIFIED (10) Thrombocytopenia Code(s): D69.6 - THROMBOCYTOPENIA, UNSPECIFIED (11) Hypothyroid Assessment/Plan: On Synthroid. TSH 2.35. Code(s): E03.9 - HYPOTHYROIDISM, UNSPECIFIED (12) Confusion Assessment/Plan: f/u this change. Code(s): R41.0 - DISORIENTATION, UNSPECIFIED
--- NOTE | 2016-06-23 16:17 | EKG ---
Test Reason : Blood Pressure : / mmHG Vent. Rate : 108 BPM Atrial Rate : 100 BPM P-R Int : 000 ms QRS Dur : 082 ms QT Int : 370 ms P-R-T Axes : 000 053 231 degrees QTc Int : 495 ms ATRIAL FIBRILLATION WITH RAPID VENTRICULAR RESPONSE ABNORMAL ECG WHEN COMPARED WITH ECG OF 20-JUN-2016 15:48, T WAVE INVERSION NO LONGER EVIDENT IN LATERAL LEADS PATIENT SITTING UP IN BED DURING EKG DUE TO PAIN Confirmed by PETEY CID MD ([id number]) on 06/23/2016 4:17:08 PM Referred By: Marcello EARLY Confirmed By:PETEY CID MD
[2016-06-23 18:22] LABS: THYROID STIMULATING HORMONE 0.38 uIU/ml (0.358-3.74)
[2016-06-24] MEDS: LEVOTHYROXINE NA 50 MCG TABLET (FP) PO SCH (06:12)
[2016-06-24] MEDS: ALBUTEROL SO4 2.5/IPRATROPIUM 0.5 INH SOL 3 ML VIAL.NEB. NEB SCH ×4 (06:45→23:25)
[2016-06-24] MEDS ORDERED: PT OWN MED DRAWER 7, Y5N ONE ×2 (09:04→21:14)
[2016-06-24] MEDS: RIVAROXABAN 20 MG TABLET PO SCH (09:06)
[2016-06-24] MEDS: RANITIDINE HCL 150 MG TABLET (FP) PO SCH (09:06)
[2016-06-24] MEDS: methylPREDNISolone NA SUCC 40 MG/1 ML VIAL IVPB SCH ×2 (09:06→21:15)
[2016-06-24] MEDS: LISINOPRIL 5 MG TABLET (FP) PO SCH (09:06)
[2016-06-24] MEDS: FUROSEMIDE 40 MG/4 ML INJECTABLE VIAL IVPUSH SCH (09:06)
[2016-06-24] MEDS: PROBENECID 500 MG TABLET PO SCH (09:07)
[2016-06-24] MEDS: OSELTAMIVIR PHOSPHATE 30 MG CAPSULE PO SCH ×2 (09:07→21:15)
--- NOTE | 2016-06-24 12:19 | PN ---
Progress Note (short form) - Note Progress Note: Patient seen in follow up today. Without new complaints. No significant events overnight. Meds reviewed. Current Medications Generic Name Dose Route Start Last Admin Trade Name Freq PRN Reason Stop Dose Admin Acetaminophen 650 mg 06/20/16 21:44 Tylenol - PO Q4H PRN FEVER OR PAIN Albuterol/Ipratropium 1 amp 06/21/16 00:00 06/24/16 06:45 Duoneb - NEB 1 amp QIDR MINNIE Administration Diltiazem HCl 120 mg 06/21/16 23:45 06/24/16 09:06 Cardizem Cd - PO 120 mg DAILY MINNIE Administration Furosemide 20 mg 06/22/16 10:00 06/24/16 09:06 Lasix Injection - IVPUSH 20 mg DAILY MINNIE Administration Levothyroxine Sodium 50 mcg 06/21/16 07:00 06/24/16 06:12 Synthroid - PO 50 mcg DAILY@0700 MINNIE Administration Lisinopril 5 mg 06/21/16 08:00 06/24/16 09:06 Prinivil PO 5 mg DAILY@0800 MINNIE Administration Meclizine HCl 12.5 mg 06/20/16 21:44 Antivert - PO TID PRN dizziness Methylprednisolone Sodium Succinate 20 mg 06/23/16 22:00 06/24/16 09:06 Solu-Medrol - IVPB 20 mg BID MINNIE Administration Oseltamivir Phosphate 30 mg 06/20/16 22:45 06/24/16 09:07 Tamiflu - PO 30 mg BID MINNIE Administration Probenecid 500 mg 06/21/16 10:00 06/24/16 09:07 Benemid - PO 500 mg DAILY MINNIE Administration Ranitidine HCl 150 mg 06/22/16 10:00 06/24/16 09:06 Zantac - PO 150 mg DAILY MINNIE Administration Rivaroxaban 20 mg 06/21/16 10:00 06/24/16 09:06 Xarelto - PO 20 mg DAILY MINNIE Administration On examination: Last Vital Signs Temp Pulse Resp BP Pulse Ox 97.3 F L 94 H 16 139/68 98 06/24/16 02:05 06/24/16 08:59 06/24/16 09:00 06/24/16 08:59 06/23/16 21:00 Cachectic. Tachypneic, with mild resp distress while on nasal canulae. Well-hydrated, no pallor or icterus. Chest: scattered crackles/wheezes. Abdomen: Soft, non-tender. CVS: S1, S2, irregular. Neuro: Alert and oriented, non-focal. No labs performed today. Assesment: Patient presenting with respiratory symptoms, suggestive of COPD exacerbation, possible viral infection, with concomitantly noted new thrombocytopenia and leukopenia. Low index of suspicion for a primary hematological process, possible reactive ( infection) vs recent drug exposure. No counts performed today - orders placed. Will continue to observe.
--- NOTE | 2016-06-24 12:39 | PN ---
Progress Note (short form) - Note Progress Note: SUBJECTIVE: Patient seen and examined. feels well. no complains eating lunch. OBJECTIVE: Vital Signs Period Temp Pulse Resp BP Sys/Brown Pulse Ox Last 24 Hr 97.2 F-97.6 F 93-121 16-20 104-146/56-70 98 Active Medications Acetaminophen (Tylenol -) 650 mg PO Q4H PRN PRN Reason: FEVER OR PAIN Albuterol/Ipratropium (Duoneb -) 1 amp NEB QIDR [facility] Last Admin: 06/24/16 06:45 Dose: 1 amp Diltiazem HCl (Cardizem Cd -) 120 mg PO DAILY [facility] Last Admin: 06/24/16 09:06 Dose: 120 mg Furosemide (Lasix Injection -) 20 mg IVPUSH DAILY [facility] Last Admin: 06/24/16 09:06 Dose: 20 mg Levothyroxine Sodium (Synthroid -) 50 mcg PO DAILY@0700 [facility] Last Admin: 06/24/16 06:12 Dose: 50 mcg Lisinopril (Prinivil) 5 mg PO DAILY@0800 [facility] Last Admin: 06/24/16 09:06 Dose: 5 mg Meclizine HCl (Antivert -) 12.5 mg PO TID PRN PRN Reason: dizziness Methylprednisolone Sodium Succinate (Solu-Medrol -) 20 mg IVPB BID [facility] Last Admin: 06/24/16 09:06 Dose: 20 mg Oseltamivir Phosphate (Tamiflu -) 30 mg PO BID [facility] Last Admin: 06/24/16 09:07 Dose: 30 mg Probenecid (Benemid -) 500 mg PO DAILY [facility] Last Admin: 06/24/16 09:07 Dose: 500 mg Ranitidine HCl (Zantac -) 150 mg PO DAILY [facility] Last Admin: 06/24/16 09:06 Dose: 150 mg Rivaroxaban (Xarelto -) 20 mg PO DAILY [facility] Last Admin: 06/24/16 09:06 Dose: 20 mg Microbiology 06/23/16 05:35 Blood Culture - Preliminary Blood - Peripheral Venous NO GROWTH OBTAINED AFTER 24 HOURS, INCUBATION TO CONTINUE FOR 4 DAYS. 06/23/16 05:35 Blood Culture - Preliminary Blood - Peripheral Venous NO GROWTH OBTAINED AFTER 24 HOURS, INCUBATION TO CONTINUE FOR 4 DAYS. 06/20/16 19:11 Blood Culture - Preliminary Blood - Peripheral Venous NO GROWTH OBTAINED AFTER 72 HOURS, INCUBATION TO CONTINUE FOR 2 DAYS. 06/20/16 19:11 Blood Culture - Preliminary Blood - Peripheral Venous NO GROWTH OBTAINED AFTER 72 HOURS, INCUBATION TO CONTINUE FOR 2 DAYS. CBC, BMP 06/23/16 05:35 06/23/16 05:35 PHYSICAL EXAMINATION: Constitutional: Yes: No Distress, Calm Cardiovascular: Yes: Pulse Irregular, Murmur. No: JVD Respiratory: Yes: Diminished. no wheezes. few scattered rhonchi. Gastrointestinal: Yes: Normal Bowel Sounds, Soft. No: Abdomen, Obese, Distention, Tenderness Edema: No Psychiatric: Yes: Alert, somewhat confused ASSESSMENT & PLAN: - Overall stable - Droplet isolation for Influenza. - Taper Solumedrol - Medications reviewed. - hematology consult noted / appreciated - Monitor labs -finish tamiflu - if better -- will consider d/[facility] Problem List - Problems (1) COPD exacerbation Code(s): J44.1 - CHRONIC OBSTRUCTIVE PULMONARY DISEASE W (ACUTE) EXACERBATION (2) Congestive heart failure Code(s): I50.9 - HEART FAILURE, UNSPECIFIED Qualifiers: Congestive heart failure type: combined Congestive heart failure chronicity: acute Qualified Code(s): I50.41 - Acute combined systolic ( congestive) and diastolic (congestive) heart failure (3) Influenza Code(s): J11.1 - FLU DUE TO UNIDENTIFIED INFLUENZA VIRUS W OTH RESP MANIFEST (4) Atrial fibrillation Code(s): I48.91 - UNSPECIFIED ATRIAL FIBRILLATION (5) Pleural effusion Code(s): J90 - PLEURAL EFFUSION, NOT ELSEWHERE CLASSIFIED (6) Chest pain Code(s): R07.9 - CHEST PAIN, UNSPECIFIED
--- NOTE | 2016-06-25 04:49 | PN ---
Progress Note, Physician Chief Complaint: Pt OOB in chair; A&Ox3. History of Present Illness: The patient is a 85 year old white female (satish Vela), brought via EMS from [facility], with a significant past medical history of Afib, diastolic CHF (with mildly reduced RVEF), Vertigo, CVA (2011), tinnitus (left ear dx February 2016) , Rheumatoid arthritis, COPD, anxiety, and Pulmonary hypertension, who presents to the emergency department with chest pain, palpitations, cough and shortness of breath that began yesterday. She describes her chest pain as a pressure, ranging from mild to moderate, with radiation to the back. She denies any modifying factors. She states that her cough is productive of a "normal" sputum. She notes that she has been compliant with all her medication. The patient was admitted to [facility] after a vertigo episode and has been there ever since. The patient denies headache and dizziness. Denies fever, chills, nausea, vomit, diarrhea and constipation. Denies dysuria, frequency, urgency and hematuria. Allergies: Penicillin, aminophylline Past surgical history: Colon Surgery, left hand carpal tunnel , right eye surgery Social history: No alcohol, tobacco or drug use reported PMD - Dr. Alex Salinas Data Processing Control Clerk - Dr. Omar Kapoor - Current Medication List Current Medications: Active Medications Acetaminophen (Tylenol -) 650 mg PO Q4H PRN PRN Reason: FEVER OR PAIN Albuterol/Ipratropium (Duoneb -) 1 amp NEB QIDR [facility] Last Admin: 06/24/16 23:25 Dose: 1 amp Diltiazem HCl (Cardizem Cd -) 120 mg PO DAILY [facility] Last Admin: 06/24/16 09:06 Dose: 120 mg Furosemide (Lasix Injection -) 20 mg IVPUSH DAILY [facility] Last Admin: 06/24/16 09:06 Dose: 20 mg Levothyroxine Sodium (Synthroid -) 50 mcg PO DAILY@0700 [facility] Last Admin: 06/24/16 06:12 Dose: 50 mcg Lisinopril (Prinivil) 5 mg PO DAILY@0800 [facility] Last Admin: 06/24/16 09:06 Dose: 5 mg Meclizine HCl (Antivert -) 12.5 mg PO TID PRN PRN Reason: dizziness Methylprednisolone Sodium Succinate (Solu-Medrol -) 20 mg IVPB BID [facility] Last Admin: 06/24/16 21:15 Dose: 20 mg Oseltamivir Phosphate (Tamiflu -) 30 mg PO BID [facility] Last Admin: 06/24/16 21:15 Dose: 30 mg Probenecid (Benemid -) 500 mg PO DAILY [facility] Last Admin: 06/24/16 09:07 Dose: 500 mg Ranitidine HCl (Zantac -) 150 mg PO DAILY [facility] Last Admin: 06/24/16 09:06 Dose: 150 mg Rivaroxaban (Xarelto -) 20 mg PO DAILY [facility] Last Admin: 06/24/16 09:06 Dose: 20 mg - Objective Vital Signs: Vital Signs Temperature 97.3 F L 06/25/16 02:11 Pulse Rate 95 H 06/25/16 02:11 Respiratory Rate 20 06/25/16 02:11 Blood Pressure 128/65 06/25/16 02:11 O2 Sat by Pulse Oximetry (%) 98 06/23/16 21:00 Constitutional: Yes: Calm Eyes: Yes: WNL HENT: Yes: WNL Neck: Yes: WNL Cardiovascular: Yes: Pulse Irregular Respiratory: Yes: Regular Gastrointestinal: Yes: Soft ...Rectal Exam: Yes: Deferred Genitourinary: No: Anuria Breast(s): Yes: WNL Musculoskeletal: Yes: Muscle Weakness Extremities: Yes: Cool Edema: No Peripheral Pulses WNL: No Peripheral Pulses: Left Doralis Pedis: 1+, Right Dorsalis Pedis: 1+ Integumentary: Yes: WNL Neurological: Yes: Alert, Weakness Psychiatric: Yes: Alert, Other Labs: CBC, BMP 06/23/16 05:35 06/23/16 05:35 INR, PTT INR 2.59 (0.82-1.09) H 06/20/16 16:00 Problem List - Problems (1) COPD exacerbation Assessment/Plan: on Solumedrol, bronchodilators. (2) Influenza Assessment/Plan: on Tamiflu; f/u with ID. Code(s): J11.1 - FLU DUE TO UNIDENTIFIED INFLUENZA VIRUS W OTH RESP MANIFEST (3) Anxiety Code(s): F41.9 - ANXIETY DISORDER, UNSPECIFIED (4) Atrial fibrillation Assessment/Plan: On diltiazem ( restarted 120 mg CD/day). On Xarelto. Code(s): I48.91 - UNSPECIFIED ATRIAL FIBRILLATION (5) Diastolic dysfunction with chronic heart failure Assessment/Plan: On lisinopril and furosemide. F/u BUN/Cr, electrolytes, Is and Os, daily weight. Code(s): I50.32 - CHRONIC DIASTOLIC (CONGESTIVE) HEART FAILURE (6) Dizziness Assessment/Plan: on Antivert. Cautious diuresis for CHF; avoid excessive dehydration. F/u orthostatic vital signs. Code(s): R42 - DIZZINESS AND GIDDINESS (7) Fever Code(s): R50.9 - FEVER, UNSPECIFIED (8) Abdominal discomfort Code(s): R10.9 - UNSPECIFIED ABDOMINAL PAIN (9) Leukopenia Assessment/Plan: Marked leukopenia, initially worsening within 48 hrs of admission (normal a month ago); now again WNL, while undergoing treatment for sepsis, influenza. Thrombocytopenia has also improved. Hematology insight appreciated. Code(s): D72.819 - DECREASED WHITE BLOOD CELL COUNT, UNSPECIFIED (10) Hypothyroid Assessment/Plan: On Synthroid. TSH 2.35. Code(s): E03.9 - HYPOTHYROIDISM, UNSPECIFIED (11) Confusion Assessment/Plan: no longer confused. Code(s): R41.0 - DISORIENTATION, UNSPECIFIED (12) Weight decrease Assessment/Plan: this has been occuring for the past 2 years, with extensive workup by Dr. Salinas and Dr. Duarte. Code(s): R63.4 - ABNORMAL WEIGHT LOSS
[2016-06-25] MEDS: LEVOTHYROXINE NA 50 MCG TABLET (FP) PO SCH (06:16)
[2016-06-25] MEDS: ALBUTEROL SO4 2.5/IPRATROPIUM 0.5 INH SOL 3 ML VIAL.NEB. NEB SCH ×3 (06:42→18:30)
[2016-06-25 07:49] LABS: BASOPHIL 0.1 % (0-2.0); MCH 31.3 pg (25.7-33.7); MCHC 33.2 g/dl (32.0-36.0); MEAN CELL VOLUME 94.5 fl (80-96); NEUTROPHILS 87.6 % (42.8-82.8); PLATELET COUNT 113 K/MM3 (134-434); RDW 16.4 % (11.6-15.6); WHITE BLOOD COUNT 5.2 K/mm3 (4.0-10.0)
[2016-06-25 08:06] LABS: ALBUMIN 3.6 g/dl (3.4-5.0); ANION GAP 7 (8-16); CALCIUM 9.1 mg/dL (8.5-10.1); CO2 39 mmol/L (21-32); GLUCOSE,RANDOM 150 mg/dL (74-106)
[2016-06-25 08:10] LABS: ALK PHOS 54 U/L (45-117); BILIRUBIN,TOTAL 1.2 mg/dL (0.2-1.0); CREATININE 0.7 mg/dL (0.55-1.02); SGOT/AST 25 U/L (15-37); SGPT/ALT 25 U/L (12-78); TOT PROT 7.2 g/dl (6.4-8.2)
[2016-06-25] MEDS: LISINOPRIL 5 MG TABLET (FP) PO SCH (08:24)
[2016-06-25] MEDS: methylPREDNISolone NA SUCC 40 MG/1 ML VIAL IVPB SCH ×2 (09:15→23:48)
[2016-06-25] MEDS: RANITIDINE HCL 150 MG TABLET (FP) PO SCH (09:16)
[2016-06-25] MEDS: FUROSEMIDE 40 MG/4 ML INJECTABLE VIAL IVPUSH SCH (09:16)
[2016-06-25] MEDS: RIVAROXABAN 20 MG TABLET PO SCH (09:16)
[2016-06-25] MEDS: OSELTAMIVIR PHOSPHATE 30 MG CAPSULE PO SCH (09:19)
[2016-06-25] MEDS: PROBENECID 500 MG TABLET PO SCH (09:20)
--- NOTE | 2016-06-25 10:24 | PN ---
Progress Note (short form) - Note Progress Note: SUBJECTIVE: Patient seen and examined. Sitting in the chair. Feels okay. Dry cough present but better. Afebrile. Day #5 of Tamiflu. OBJECTIVE: Vital Signs - 8 hr 06/25/16 05:22 Temperature 97.8 F Pulse Rate 95 H Respiratory 20 Rate Blood Pressure 141/63 Intake & Output 06/24/16 06/25/16 06/25/16 23:59 07:59 15:59 Intake Total 650 100 Balance 650 100 Intake: IV 10 #22G RFA 06/21/15 10 Oral 640 100 Other: Voiding Method Incontinent # Unmeasured Voids Pérez 3 2 Bowel Movement Yes Active Medications Acetaminophen (Tylenol -) 650 mg PO Q4H PRN PRN Reason: FEVER OR PAIN Albuterol/Ipratropium (Duoneb -) 1 amp NEB QIDR [facility] Last Admin: 06/25/16 06:42 Dose: 1 amp Diltiazem HCl (Cardizem Cd -) 120 mg PO DAILY [facility] Last Admin: 06/25/16 09:17 Dose: 120 mg Furosemide (Lasix -) 40 mg PO DAILY [facility] Levothyroxine Sodium (Synthroid -) 50 mcg PO DAILY@0700 [facility] Last Admin: 06/25/16 06:16 Dose: 50 mcg Lisinopril (Prinivil) 5 mg PO DAILY@0800 [facility] Last Admin: 06/25/16 08:24 Dose: 5 mg Meclizine HCl (Antivert -) 12.5 mg PO TID PRN PRN Reason: dizziness Methylprednisolone Sodium Succinate (Solu-Medrol -) 20 mg IVPB BID [facility] Last Admin: 06/25/16 09:15 Dose: 20 mg Oseltamivir Phosphate (Tamiflu -) 30 mg PO BID [facility] Last Admin: 06/25/16 09:19 Dose: 30 mg Potassium Chloride (K-Dur -) 10 meq PO DAILY [facility] Probenecid (Benemid -) 500 mg PO DAILY [facility] Last Admin: 06/25/16 09:20 Dose: 500 mg Ranitidine HCl (Zantac -) 150 mg PO DAILY [facility] Last Admin: 06/25/16 09:16 Dose: 150 mg Rivaroxaban (Xarelto -) 20 mg PO DAILY [facility] Last Admin: 06/25/16 09:16 Dose: 20 mg CBC, BMP 06/25/16 05:35 06/25/16 05:35 Laboratory Results - last 24 hr 06/25/16 06/25/16 05:35 05:35 WBC 5.2 RBC 3.66 Hgb 11.5 Hct 34.6 MCV 94.5 MCHC 33.2 RDW 16.4 H Plt Count 113 L MPV 10.0 Neutrophils % 87.6 H Lymphocytes % 6.1 L D Monocytes % 6.2 Eosinophils % 0.0 Basophils % 0.1 Sodium 140 Potassium 3.4 L Chloride 94 L Carbon Dioxide 39 H D Anion Gap 7 L BUN 35 H Creatinine 0.7 D Creat Clearance w eGFR > 60 Random Glucose 150 H Calcium 9.1 Total Bilirubin 1.2 H D AST 25 ALT 25 D Alkaline Phosphatase 54 D Total Protein 7.2 Albumin 3.6 Microbiology 06/23/16 05:35 Blood Culture - Preliminary Blood - Peripheral Venous NO GROWTH OBTAINED AFTER 48 HOURS, INCUBATION TO CONTINUE FOR 3 DAYS. 06/23/16 05:35 Blood Culture - Preliminary Blood - Peripheral Venous NO GROWTH OBTAINED AFTER 48 HOURS, INCUBATION TO CONTINUE FOR 3 DAYS. 06/20/16 19:11 Blood Culture - Preliminary Blood - Peripheral Venous NO GROWTH OBTAINED AFTER 96 HOURS, INCUBATION TO CONTINUE FOR 1 DAYS. 06/20/16 19:11 Blood Culture - Preliminary Blood - Peripheral Venous NO GROWTH OBTAINED AFTER 96 HOURS, INCUBATION TO CONTINUE FOR 1 DAYS. PHYSICAL EXAMINATION: Constitutional: Yes: No Distress, Calm Cardiovascular: Yes: Pulse Irregular, Murmur. No: JVD Respiratory: Yes: Diminished. no wheezes. few scattered rhonchi. Gastrointestinal: Yes: Normal Bowel Sounds, Soft. No: Abdomen, Obese, Distention, Tenderness Edema: No Psychiatric: Yes: Alert, somewhat confused ASSESSMENT & PLAN: - Overall stable - Taper Solumedrol----- Change to Prednisone in the AM. - Change IV Lasix to PO. - Supplement Potassium. - Medications reviewed. - Finish tamiflu today. - If better -- will consider d/c [facility] tomorrow Problem List - Problems (1) COPD exacerbation Code(s): J44.1 - CHRONIC OBSTRUCTIVE PULMONARY DISEASE W (ACUTE) EXACERBATION (2) Congestive heart failure Code(s): I50.9 - HEART FAILURE, UNSPECIFIED Qualifiers: Congestive heart failure type: combined Congestive heart failure chronicity: acute Qualified Code(s): I50.41 - Acute combined systolic ( congestive) and diastolic (congestive) heart failure (3) Influenza Code(s): J11.1 - FLU DUE TO UNIDENTIFIED INFLUENZA VIRUS W OTH RESP MANIFEST (4) Atrial fibrillation Code(s): I48.91 - UNSPECIFIED ATRIAL FIBRILLATION (5) Pleural effusion Code(s): J90 - PLEURAL EFFUSION, NOT ELSEWHERE CLASSIFIED (6) Chest pain Code(s): R07.9 - CHEST PAIN, UNSPECIFIED Documentation prepared by Mallorie Lopez, acting as a medical assistant float for Jefferson Silva MD.
--- NOTE | 2016-06-25 10:40 | DS ---
Physical Examination Vital Signs: Vital Signs Temperature 97.8 F 06/25/16 05:22 Pulse Rate 95 H 06/25/16 05:22 Respiratory Rate 20 06/25/16 05:22 Blood Pressure 141/63 06/25/16 05:22 O2 Sat by Pulse Oximetry (%) 97 06/25/16 09:00 Labs: CBC, BMP 06/25/16 05:35 06/25/16 05:35 <Jefferson Silva - Last Filed: 06/25/16 10:39> Vital Signs: Vital Signs Temperature 97.8 F 06/25/16 05:22 Pulse Rate 95 H 06/25/16 05:22 Respiratory Rate 20 06/25/16 05:22 Blood Pressure 141/63 06/25/16 05:22 O2 Sat by Pulse Oximetry (%) 97 06/25/16 09:00 Findings/Remarks: See today's progress note. Labs: CBC, BMP 06/25/16 05:35 06/25/16 05:35 <Mallorie Lopez - Last Filed: 06/25/16 10:46> Discharge Summary Reason For Visit: DIFFICULTY BREATHING Current Active Problems Abdominal discomfort (Acute) COPD exacerbation (Acute) Chest pain (Acute) Congestive heart failure (Acute) Hypothyroid (Acute) Influenza (Acute) Leukopenia (Acute) - Home Medications Comprehensive Discharge Medication List: Ambulatory Orders Rivaroxaban [Xarelto -] 20 mg PO DAILY 12/14/14 Levothyroxine [Synthroid -] 50 mcg PO DAILY 02/13/16 Albuterol 2.5/Ipratropium 0.5 [Duoneb -] 1 neb IH QID #120 vial.neb. MDD 4 04/10 Acetaminophen [Tylenol .Regular Strength -] 650 mg PO Q4H PRN #0 tablet Clonazepam [Klonopin -] 0.5 mg PO Q12H PRN 05/26/16 Diltiazem Cd [Cardizem Cd -] 60 mg PO DAILY #0 05/29/16 Lisinopril [Prinivil] 5 mg PO DAILY@0800 #30 tablet 05/29/16 Probenecid 500 mg PO DAILY #0 05/29/16 Meclizine HCl [Antivert -] 12.5 mg PO TID PRN 06/20/16 Furosemide [Lasix -] 40 mg PO DAILY tablet 06/25/16 Lisinopril [Prinivil] 5 mg PO DAILY@0800 tablet 06/25/16 Potassium Chloride [K-Dur -] 10 meq PO DAILY tablet.er 06/25/16 Prednisone [Deltasone -] 10 mg PO DAILY #30 tablet 06/25/16 Ranitidine [Zantac -] 150 mg PO DAILY tablet 06/25/16 <Jefferson Silva - Last Filed: 06/25/16 10:39> Current Active Problems Abdominal discomfort (Acute) COPD exacerbation (Acute) Chest pain (Acute) Congestive heart failure (Acute) Hypothyroid (Acute) Influenza (Acute) Leukopenia (Acute) Hospital Course: Patient with a PMH as documented admitted for shortness of breath. Found to be in COPD exacerbation as well as having the flu. Treated with IV steroids and Tamiflu. Got better. Now stable for discharge. Back to facility. Finishing Tamiflu today (Day #5) Will send off on Prednisone. Hospital course complicated by pancytopenia, likely due to medications. Hematology consultation was taken. Now improved. Need to monitor. Plan discussed with nursing staff. Documentation prepared by Mallorie Lopez, acting as a medical surgery nurse for Jefferson Silva MD. - Home Medications Comprehensive Discharge Medication List: Ambulatory Orders Rivaroxaban [Xarelto -] 20 mg PO DAILY 12/14/14 Levothyroxine [Synthroid -] 50 mcg PO DAILY 02/13/16 Albuterol 2.5/Ipratropium 0.5 [Duoneb -] 1 neb IH QID #120 vial.neb. MDD 4 04/10 Acetaminophen [Tylenol .Regular Strength -] 650 mg PO Q4H PRN #0 tablet Clonazepam [Klonopin -] 0.5 mg PO Q12H PRN 05/26/16 Diltiazem Cd [Cardizem Cd -] 60 mg PO DAILY #0 05/29/16 Lisinopril [Prinivil] 5 mg PO DAILY@0800 #30 tablet 05/29/16 Probenecid 500 mg PO DAILY #0 05/29/16 Meclizine HCl [Antivert -] 12.5 mg PO TID PRN 06/20/16 Furosemide [Lasix -] 40 mg PO DAILY tablet 06/25/16 Lisinopril [Prinivil] 5 mg PO DAILY@0800 tablet 06/25/16 Potassium Chloride [K-Dur -] 10 meq PO DAILY tablet.er 06/25/16 Prednisone [Deltasone -] 10 mg PO DAILY #30 tablet 06/25/16 Ranitidine [Zantac -] 150 mg PO DAILY tablet 06/25/16 <Mallorie Lopez - Last Filed: 06/25/16 10:46> - Instructions Referrals: Alex Salinas MD [Primary Care Provider] -
[2016-06-25] MEDS: POTASSIUM CHLORIDE TABS 10 MEQ TABLET.ER (FP) PO SCH (11:24)
--- NOTE | 2016-06-25 15:42 | PN ---
Progress Note, Physician - Current Medication List Current Medications: Active Medications Acetaminophen (Tylenol -) 650 mg PO Q4H PRN PRN Reason: FEVER OR PAIN Albuterol/Ipratropium (Duoneb -) 1 amp NEB QIDR [facility] Last Admin: 06/25/16 11:22 Dose: 1 amp Diltiazem HCl (Cardizem Cd -) 120 mg PO DAILY [facility] Last Admin: 06/25/16 09:17 Dose: 120 mg Furosemide (Lasix -) 40 mg PO DAILY [facility] Levothyroxine Sodium (Synthroid -) 50 mcg PO DAILY@0700 [facility] Last Admin: 06/25/16 06:16 Dose: 50 mcg Lisinopril (Prinivil) 5 mg PO DAILY@0800 [facility] Last Admin: 06/25/16 08:24 Dose: 5 mg Meclizine HCl (Antivert -) 12.5 mg PO TID PRN PRN Reason: dizziness Methylprednisolone Sodium Succinate (Solu-Medrol -) 20 mg IVPB BID [facility] Last Admin: 06/25/16 09:15 Dose: 20 mg Oseltamivir Phosphate (Tamiflu -) 30 mg PO BID [facility] Last Admin: 06/25/16 09:19 Dose: 30 mg Potassium Chloride (K-Dur -) 10 meq PO DAILY [facility] Last Admin: 06/25/16 11:24 Dose: 10 meq Probenecid (Benemid -) 500 mg PO DAILY [facility] Last Admin: 06/25/16 09:20 Dose: 500 mg Ranitidine HCl (Zantac -) 150 mg PO DAILY [facility] Last Admin: 06/25/16 09:16 Dose: 150 mg Rivaroxaban (Xarelto -) 20 mg PO DAILY [facility] Last Admin: 06/25/16 09:16 Dose: 20 mg - Objective Vital Signs: Vital Signs Temperature 98 F 06/25/16 10:00 Pulse Rate 61 06/25/16 11:22 Respiratory Rate 18 06/25/16 10:00 Blood Pressure 140/70 06/25/16 10:00 O2 Sat by Pulse Oximetry (%) 95 06/25/16 11:22 Eyes: Yes: WNL, Conjunctiva Clear, EOM Intact HENT: Yes: WNL, Atraumatic, Normocephalic Neck: Yes: WNL, Supple, Trachea Midline Cardiovascular: Yes: WNL, Regular Rate and Rhythm Respiratory: Yes: WNL, Regular, CTA Bilaterally Gastrointestinal: Yes: WNL, Normal Bowel Sounds Genitourinary: Yes: WNL Musculoskeletal: Yes: WNL Extremities: Yes: WNL Edema: No Integumentary: Yes: WNL Neurological: Yes: WNL, Alert, Oriented ...Motor Strength: WNL Psychiatric: Yes: WNL Labs: CBC, BMP 06/25/16 05:35 06/25/16 05:35 INR, PTT INR 2.59 (0.82-1.09) H 06/20/16 16:00 Assessment/Plan - Problems (1) COPD exacerbation Assessment/Plan: on Solumedrol, bronchodilators. (2) Influenza Assessment/Plan: on Tamiflu; f/u with ID. Code(s): J11.1 - FLU DUE TO UNIDENTIFIED INFLUENZA VIRUS W OTH RESP MANIFEST (3) Anxiety Code(s): F41.9 - ANXIETY DISORDER, UNSPECIFIED (4) Atrial fibrillation Assessment/Plan: On diltiazem ( restarted 120 mg CD/day). On Xarelto. Code(s): I48.91 - UNSPECIFIED ATRIAL FIBRILLATION (5) Diastolic dysfunction with chronic heart failure Assessment/Plan: On lisinopril and furosemide. F/u BUN/Cr, electrolytes, Is and Os, daily weight. Code(s): I50.32 - CHRONIC DIASTOLIC (CONGESTIVE) HEART FAILURE (6) Dizziness Assessment/Plan: on Antivert. Cautious diuresis for CHF; avoid excessive dehydration. F/u orthostatic vital signs. Code(s): R42 - DIZZINESS AND GIDDINESS (7) Fever Code(s): R50.9 - FEVER, UNSPECIFIED (8) Abdominal discomfort Code(s): R10.9 - UNSPECIFIED ABDOMINAL PAIN (9) Leukopenia Assessment/Plan: Marked leukopenia, initially worsening within 48 hrs of admission (normal a month ago); now again WNL, while undergoing treatment for sepsis, influenza. Thrombocytopenia has also improved. Hematology insight appreciated. Code(s): D72.819 - DECREASED WHITE BLOOD CELL COUNT, UNSPECIFIED (10) Hypothyroid Assessment/Plan: On Synthroid. TSH 2.35. Code(s): E03.9 - HYPOTHYROIDISM, UNSPECIFIED (11) Confusion Assessment/Plan: no longer confused. Code(s): R41.0 - DISORIENTATION, UNSPECIFIED (12) Weight decrease Assessment/Plan: this has been occuring for the past 2 years, with extensive workup by Dr. Salinas and Dr. Duarte. Code(s): R63.4 - ABNORMAL WEIGHT LOSS
--- NOTE | 2016-06-25 18:19 | PN ---
Progress Note (short form) - Note Progress Note: Patient seen and examined mildly confused Last Vital Signs Temp Pulse Resp BP Pulse Ox 97.6 F 98 H 20 138/72 95 06/25/16 16:30 06/25/16 16:30 06/25/16 16:30 06/25/16 16:30 06/25/16 11:22 HEENT: MADDIE, EOM Intact Oropharynx: No thrush, No mucositis Cor: RSR, No murmurs, No gallops Lungs: Clear to P&A Abd: Soft, Normal bowel sounds, No organomegaly Abnormal Lab Results 06/25/16 06/25/16 05:35 05:35 RDW 16.4 H Plt Count 113 L Neutrophils % 87.6 H Lymphocytes % 6.1 L D Potassium 3.4 L Chloride 94 L Carbon Dioxide 39 H D Anion Gap 7 L BUN 35 H Random Glucose 150 H Total Bilirubin 1.2 H D Current Medications Acetaminophen (Tylenol -) 650 mg PO Q4H PRN PRN Reason: FEVER OR PAIN Albuterol/Ipratropium (Duoneb -) 1 amp NEB QIDR [facility] Last Admin: 06/25/16 11:22 Dose: 1 amp Diltiazem HCl (Cardizem Cd -) 120 mg PO DAILY [facility] Last Admin: 06/25/16 09:17 Dose: 120 mg Furosemide (Lasix -) 40 mg PO DAILY [facility] Levothyroxine Sodium (Synthroid -) 50 mcg PO DAILY@0700 [facility] Last Admin: 06/25/16 06:16 Dose: 50 mcg Lisinopril (Prinivil) 5 mg PO DAILY@0800 [facility] Last Admin: 06/25/16 08:24 Dose: 5 mg Meclizine HCl (Antivert -) 12.5 mg PO TID PRN PRN Reason: dizziness Methylprednisolone Sodium Succinate (Solu-Medrol -) 20 mg IVPB BID [facility] Last Admin: 06/25/16 09:15 Dose: 20 mg Oseltamivir Phosphate (Tamiflu -) 30 mg PO BID [facility] Last Admin: 06/25/16 09:19 Dose: 30 mg Potassium Chloride (K-Dur -) 10 meq PO DAILY [facility] Last Admin: 06/25/16 11:24 Dose: 10 meq Probenecid (Benemid -) 500 mg PO DAILY [facility] Last Admin: 06/25/16 09:20 Dose: 500 mg Ranitidine HCl (Zantac -) 150 mg PO DAILY [facility] Last Admin: 06/25/16 09:16 Dose: 150 mg Rivaroxaban (Xarelto -) 20 mg PO DAILY [facility] Last Admin: 06/25/16 09:16 Dose: 20 mg A/P Patient presenting with respiratory symptoms, suggestive of COPD exacerbation, possible viral infection, with concomitantly noted new thrombocytopenia and leukopenia. Low index of suspicion for a primary hematological process, possible reactive ( infection) vs recent drug exposure. Leukopenia and thrombocytopenia improving cachectic --? w/u mildly confused --baseline dementia?
[2016-06-26] MEDS: OSELTAMIVIR PHOSPHATE 30 MG CAPSULE PO SCH (04:29)
[2016-06-26] MEDS: ALBUTEROL SO4 2.5/IPRATROPIUM 0.5 INH SOL 3 ML VIAL.NEB. NEB SCH ×2 (06:00)
[2016-06-26] MEDS: LEVOTHYROXINE NA 50 MCG TABLET (FP) PO SCH (06:20)
[2016-06-26] MEDS: PROBENECID 500 MG TABLET PO SCH (09:39)
[2016-06-26] MEDS: POTASSIUM CHLORIDE TABS 10 MEQ TABLET.ER (FP) PO SCH (09:39)
[2016-06-26] MEDS: LISINOPRIL 5 MG TABLET (FP) PO SCH (09:39)
[2016-06-26] MEDS: RIVAROXABAN 20 MG TABLET PO SCH (09:40)
[2016-06-26] MEDS: methylPREDNISolone NA SUCC 40 MG/1 ML VIAL IVPB SCH (09:40)
[2016-06-26] MEDS: RANITIDINE HCL 150 MG TABLET (FP) PO SCH (09:40)
[2016-06-26] MEDS ORDERED: FUROSEMIDE 40 MG TABLET (FP) PO SCH (10:00)
[2016-06-26] MEDS ORDERED: predniSONE 10 MG TABLET (UD) PO ONE (11:00)
--- NOTE | 2016-06-26 11:09 | PN ---
[id number] SOB Vital Signs - 24 hr 06/25/16 06/25/16 06/25/16 11:22 16:30 17:00 Temperature 97.6 F 98.0 F Pulse Rate 61 98 H 99 H Respiratory 20 18 Rate Blood Pressure 138/72 140/78 O2 Sat by Pulse 95 Oximetry (%) 06/25/16 06/26/16 06/26/16 21:00 02:00 06:00 Temperature 97.9 F Pulse Rate 124 H 104 H Respiratory 20 22 Rate Blood Pressure 129/69 141/82 O2 Sat by Pulse 95 Oximetry (%) Current Medications Generic Name Dose Route Start Last Admin Trade Name Freq PRN Reason Stop Dose Admin Acetaminophen 650 mg 06/20/16 21:44 Tylenol - PO Q4H PRN FEVER OR PAIN Albuterol/Ipratropium 1 amp 06/21/16 00:00 06/26/16 06:00 Duoneb - NEB 1 amp QIDR MINNIE Administration Diltiazem HCl 120 mg 06/21/16 23:45 06/26/16 09:39 Cardizem Cd - PO 120 mg DAILY MINNIE Administration Furosemide 40 mg 06/26/16 10:00 06/26/16 09:39 Lasix - PO 40 mg DAILY MINNIE Administration Levothyroxine Sodium 50 mcg 06/21/16 07:00 06/26/16 06:20 Synthroid - PO Not Given DAILY@0700 MINNIE Lisinopril 5 mg 06/21/16 08:00 06/26/16 09:39 Prinivil PO 5 mg DAILY@0800 MINNIE Administration Meclizine HCl 12.5 mg 06/20/16 21:44 Antivert - PO TID PRN dizziness Methylprednisolone Sodium Succinate 20 mg 06/23/16 22:00 06/26/16 09:40 Solu-Medrol - IVPB Not Given BID [facility] Potassium Chloride 10 meq 06/25/16 10:30 06/26/16 09:39 K-Dur - PO 10 meq DAILY MINNIE Administration Probenecid 500 mg 06/21/16 10:00 06/26/16 09:39 Benemid - PO 500 mg DAILY MINNIE Administration Ranitidine HCl 150 mg 06/22/16 10:00 06/26/16 09:40 Zantac - PO 150 mg DAILY [facility]NIE Administration Rivaroxaban 20 mg 06/21/16 10:00 06/26/16 09:40 Xarelto - PO 20 mg DAILY [facility]NIE Administration S1 S2 Irregular Lungs clear No ronchi Abd- soft, NT No edema PLAN -- on PO prednisone -- On Xarelto -- continue with meds -- pt will be dc to SNF today Problem List - Problems (1) COPD exacerbation Code(s): J44.1 - CHRONIC OBSTRUCTIVE PULMONARY DISEASE W (ACUTE) EXACERBATION (2) Congestive heart failure Code(s): I50.9 - HEART FAILURE, UNSPECIFIED Qualifiers: Congestive heart failure type: combined Congestive heart failure chronicity: acute Qualified Code(s): I50.41 - Acute combined systolic ( congestive) and diastolic (congestive) heart failure (3) Influenza Code(s): J11.1 - FLU DUE TO UNIDENTIFIED INFLUENZA VIRUS W OTH RESP MANIFEST (4) Atrial fibrillation Code(s): I48.91 - UNSPECIFIED ATRIAL FIBRILLATION Qualifiers: Atrial fibrillation type: persistent Qualified Code(s): I48.1 - Persistent atrial fibrillation (5) Pleural effusion Code(s): J90 - PLEURAL EFFUSION, NOT ELSEWHERE CLASSIFIED (6) Chest pain Code(s): R07.9 - CHEST PAIN, UNSPECIFIED
[2016-06-26 11:24] VITALS: BP 140/90; PULSE 96; TEMP 98
--- NOTE | 2016-06-26 11:36 | PN ---
Progress Note, Physician Chief Complaint: Pt A&Ox3; no chest pain; periods of dizziness. History of Present Illness: The patient is a 85 year old white female (satish Vela), brought via EMS from [facility], with a significant past medical history of Afib, diastolic CHF (with mildly reduced RVEF), Vertigo, CVA (2011), tinnitus (left ear dx February 2016) , Rheumatoid arthritis, COPD, anxiety, and Pulmonary hypertension, who presents to the emergency department with chest pain, palpitations, cough and shortness of breath that began yesterday. She describes her chest pain as a pressure, ranging from mild to moderate, with radiation to the back. She denies any modifying factors. She states that her cough is productive of a "normal" sputum. She notes that she has been compliant with all her medication. The patient was admitted to [facility] senior living after a vertigo episode and has been there ever since. The patient denies headache and dizziness. Denies fever, chills, nausea, vomit, diarrhea and constipation. Denies dysuria, frequency, urgency and hematuria. Allergies: Penicillin, aminophylline Past surgical history: Colon Surgery, left hand carpal tunnel , right eye surgery Social history: No alcohol, tobacco or drug use reported PMD - Dr. Alex Salinas [employer] - Dr. Oamr Kapoor - Objective Vital Signs: Vital Signs Temperature 98 F 06/26/16 10:00 Pulse Rate 96 H 06/26/16 10:00 Respiratory Rate 18 06/26/16 10:00 Blood Pressure 140/90 06/26/16 10:00 O2 Sat by Pulse Oximetry (%) 97 06/26/16 09:00 Constitutional: Yes: Anxious, Thin Eyes: Yes: WNL HENT: Yes: WNL Neck: Yes: WNL Cardiovascular: Yes: Pulse Irregular Respiratory: Yes: Regular Gastrointestinal: Yes: Soft ...Rectal Exam: Yes: Deferred Genitourinary: No: Anuria Breast(s): Yes: WNL Musculoskeletal: Yes: Muscle Weakness Extremities: Yes: Cool Edema: No Peripheral Pulses WNL: No Peripheral Pulses: Left Doralis Pedis: 1+, Right Dorsalis Pedis: 1+ Integumentary: Yes: Other (small scabs on lips) Neurological: Yes: Alert, Oriented, Weakness Psychiatric: Yes: Alert, Oriented, Other (anxious; depressed) Labs: CBC, BMP 06/25/16 05:35 06/25/16 05:35 INR, PTT INR 2.59 (0.82-1.09) H 06/20/16 16:00 - ....Imaging Other: Image Reviewed (telemetry: AF; controlled VR) Problem List - Problems (1) COPD exacerbation Assessment/Plan: on steroids, bronchodilators. (2) Influenza Assessment/Plan: on Tamiflu; f/u with ID. Code(s): J11.1 - FLU DUE TO UNIDENTIFIED INFLUENZA VIRUS W OTH RESP MANIFEST (3) Anxiety Code(s): F41.9 - ANXIETY DISORDER, UNSPECIFIED (4) Atrial fibrillation Assessment/Plan: On diltiazem ( restarted 120 mg CD/day). On Xarelto. Code(s): I48.91 - UNSPECIFIED ATRIAL FIBRILLATION (5) Diastolic dysfunction with chronic heart failure Assessment/Plan: On lisinopril, diltiazem, and furosemide. F/u BUN/Cr, electrolytes, Is and Os, daily weight. Replete K+; f/u all electrolytes. Code(s): I50.32 - CHRONIC DIASTOLIC (CONGESTIVE) HEART FAILURE (6) Dizziness Assessment/Plan: on Antivert. Cautious diuresis for CHF; avoid excessive dehydration. F/u orthostatic vital signs. Code(s): R42 - DIZZINESS AND GIDDINESS (7) Fever Code(s): R50.9 - FEVER, UNSPECIFIED (8) Abdominal discomfort Code(s): R10.9 - UNSPECIFIED ABDOMINAL PAIN (9) Leukopenia Assessment/Plan: Marked leukopenia, initially worsening within 48 hrs of admission (normal a month ago); now again WNL, while undergoing treatment for sepsis, influenza. Thrombocytopenia has also improved. Hematology insight appreciated. Code(s): D72.819 - DECREASED WHITE BLOOD CELL COUNT, UNSPECIFIED (10) Hypothyroid Assessment/Plan: On Synthroid. TSH 2.35. Code(s): E03.9 - HYPOTHYROIDISM, UNSPECIFIED (11) Confusion Assessment/Plan: no longer confused. Code(s): R41.0 - DISORIENTATION, UNSPECIFIED (12) Weight decrease Assessment/Plan: this has been occuring for the past 2 years, with extensive workup by Dr. Salinas and Dr. Duarte. Code(s): R63.4 - ABNORMAL WEIGHT LOSS
== END 2016-06-26 11:28 | DRG 190 ==
LOC: JER 15:22 → UNDOADMIN 19:25 → JERBED 19:25 → J4W 20:34 → JERBED 21:46
PROVIDERS: ADMIT Internal Medicine; ATTEND Internal Medicine
DX: J44.1 Chronic obstructive pulmonary disease with (acute) exacerbation (principal); I50.41 Acute combined systolic (congestive) and diastolic (congestive) heart failure; Z68.1 Body mass index [BMI] 19.9 or less, adult; E03.9 Hypothyroidism, unspecified; I48.91 Unspecified atrial fibrillation; H93.12 Tinnitus, left ear; Z86.73 Personal history of transient ischemic attack (TIA), and cerebral infarction without residual deficits; J45.909 Unspecified asthma, uncomplicated; F41.9 Anxiety disorder, unspecified; J11.1 Influenza due to unidentified influenza virus with other respiratory manifestations; R55 Syncope and collapse; I11.0 Hypertensive heart disease with heart failure; I27.2 Other secondary pulmonary hypertension; M06.9 Rheumatoid arthritis, unspecified; R63.0 Anorexia; R63.4 Abnormal weight loss; R01.1 Cardiac murmur, unspecified; D69.6 Thrombocytopenia, unspecified; D72.819 Decreased white blood cell count, unspecified; R42 Dizziness and giddiness; R41.0 Disorientation, unspecified
CPT/HCPCS: 36415; 70450-TC; 71010-TC; 80053; 81003; 81015; 82550; 82607; 82746; 83605; 83735; 83880; 84443; 84484; 85025; 85610; 87040; 87086; 87804; 93005; 93010; 94640; 99285-25